=== PATIENT | male | born 1975 | race American Indian/Alaskan Native ===

== ENCOUNTER 2016-02-20 09:15 | Inpatient (IN) | payer OTHER ==
--- NOTE | 2016-02-20 09:50 | Emergency Department Report ---
Chief Complaint: Chest Pain Stated Complaint: CHEST PAIN Time Seen by Provider: 02/20/16 09:49 - HPI History of Present Illness: Patient here reports chest pain with coughing 2 weeks. Pain is located to his left chest area and 7 out of 10. Reports nausea and difficulty breathing. She denies history of HIV he states can stribild. He said he missed 2 days of his medication. She was seeing Dr. daugherty as his infectious disease doctor. He said his viral load was undetectable at 4 months ago. Patient is febrile at 102.4 and tachycardic. - ROS Review of Systems: All Systems are negative unless stated in HPI above. - Exam Vital Signs: Vital Signs 02/20/16 09:35 Temperature 102.4 F H Pulse Rate 135 H Respiratory 18 Rate Blood Pressure 120/81 O2 Sat by Pulse 96 Oximetry Physical Exam: General: This is a 40-year-old male that looks ill Lungs: Patient with congestive cough and lung sounds are coarse rhonchi. Mild increased work of breathing. Patient is short of breath with exertion. CV: Tachycardic at 135. MSE screening note: Focused history and physical exam performed. Due to findings the following was ordered:see mdm ED Medical Decision Making - Medical Decision Making Medical decision making: Patient seen by provider in triage area. Appropriate protocol activated and patient to main ED to be seen by physician. ED Disposition for MSE Condition: Stable
[2016-02-20] MEDS ORDERED: NACL 0.9% 1000 ML 1,000 ML IV ONE ×2 (09:51→11:36)
[2016-02-20] MEDS ORDERED: TYLENOL PO STA (09:51)
[2016-02-20] MEDS ORDERED: ATROVENT IH ONE (09:55)
[2016-02-20] MEDS ORDERED: XOPENEX IH ONE (09:55)
[2016-02-20 10:24] LABS: Basophils % (Auto) 0.4 % (0.0-1.8); Hematocrit 40.2 % (35.5-45.6); Hemoglobin 13.2 gm/dl (11.8-15.2); Mean Corpuscular HGB Conc 33 % (32-34); Mean Corpuscular Hemoglobin 31 pg (28-32); Mean Corpuscular Volume 94 fl (84-94); Platelet Count 487 K/mm3 (140-440); Red Blood Count 4.29 M/mm3 (3.65-5.03); Red Cell Distribution Width 13.6 % (13.2-15.2); White Blood Count 16.6 K/mm3 (4.5-11.0)
[2016-02-20 10:38] LABS: Alanine Aminotransferase 53 units/L (7-56); Albumin 3.6 g/dL (3.9-5); Albumin/Globulin Ratio 0.7 %; Alkaline Phosphatase 78 units/L (35-129); Anion Gap 21 mmol/L; BUN/Creatinine Ratio 16.36; Bilirubin,Total 0.5 mg/dL (0.1-1.2); Blood Urea Nitrogen 18 mg/dL (9-20); Calcium 9.7 mg/dL (8.4-10.2); Carbon Dioxide 26 mmol/L (22-30); Chloride 90.1 mmol/L (98-107); Glucose 130 mg/dL (75-100); Potassium 4.7 mmol/L (3.6-5.0); Sodium 132 mmol/L (137-145); Total Protein 9.1 g/dL (6.3-8.2)
[2016-02-20 10:43] LABS: INR 1.33 (0.87-1.13)
--- NOTE | 2016-02-20 10:47 | XRay Report ---
ROUTINE CHEST, TWO VIEWS: HISTORY: Cough, fever. The trachea, heart, mediastinal contour, lung sams and bony thorax are unremarkable. No significant change since 10/09/15. IMPRESSION: Unremarkable chest x-ray.
[2016-02-20 11:04] LABS: Bilirubin,Urine NEG (Negative); Blood,Urine SM (Negative); Ketones,Urine NEG (Negative); Leukocyte Esterase,Urine NEG (Negative); Mucus,Urine 1+ /HPF; Nitrite,Urine NEG (Negative); Urobilinogen,Urine < 2.0 mg/dL (<2.0)
[2016-02-20 11:38] LABS: Creatine Kinase 41 units/L (55-170)
--- NOTE | 2016-02-20 11:43 | Emergency Department Report ---
HPI - General Chief Complaint: Chest Pain Time Seen by Provider: 02/20/16 09:54 - HPI HPI: Chief complaint: Cough, chest pain, wheezing, fever HPI: Patient is a 40-year-old male states he's been HIV positive since 2011 but denies HIV related infections. Patient is taking antiretrovirals and states his viral load was nondetectable on his most recent visit to his infectious disease doctor. Patient states he has not taken his medications in the last 2 days. Patient states he injured his shoulder approximately a month ago pushing sheet rock at work and one week ago he began having swelling in his sternoclavicular joint on the right and tenderness. Patient states it hurts when he breathes there and when he swallows. Patient also complains of headache and slight lightheadedness. Patient states today he has sharp left pectoralis muscle pain. Patient states his fever started this morning. Patient states he has a nonproductive cough and denies any abdominal pain or dysuria. Mode of arrival: [EMS] Source: [Patient] and nursing notes Began: See above Duration: See above Context: See above Quality: See above Severity: 7 out of 10 Improved with: See above Worsened with: Nothing Associated signs and symptoms: See above ED Past Medical Hx - Past Medical History Previous Medical History?: Yes Hx HIV: Yes Additional medical history: recent foot infection - Surgical History Past Surgical History?: Yes Additional Surgical History: hernia repair - Social History Smoking Status: Former Smoker Substance Use Type: Prescribed - Medications Home Medications: Home Medications Medication Instructions Recorded Confirmed Last Taken Type Ciprofloxacin [Ciprofloxacin ORAL 500 mg PO Q12H #20 ml 10/12/15 Unknown Rx LIQ] HYDROcodone/APAP 10-325 [Kimball 1 each PO Q8HR PRN #10 tablet 02/04/16 Unknown Rx 10/325] Ibuprofen [Motrin 800 MG tab] 800 mg PO Q8HR PRN #21 tablet 02/04/16 Unknown Rx predniSONE [Deltasone] 40 mg PO QDAY #10 tab 02/04/16 Unknown Rx ED Review of Systems ROS: Stated complaint: CHEST PAIN Other details as noted in HPI ROS Constitutional: fever ENT: See HPI Cardiovascular: See HPI Respiratory: See HPI GI: No nausea vomiting or diarrhea : No dysuria frequency or urgency, Skin: No rash Neuro: No focal weakness or numbness Psych: No depression Ramiro/lymph: No edema Physical Exam - Physical Exam Vital Signs: Vital Signs 02/20/16 02/20/16 02/20/16 09:35 10:51 10:53 Temperature 102.4 F H Pulse Rate 135 H 110 H Pulse Rate [ Anterior Bilateral Throughout] Respiratory 18 25 H Rate Respiratory Rate [Anterior Bilateral Throughout] Blood Pressure 120/81 O2 Sat by Pulse 96 97 97 Oximetry 02/20/16 02/20/16 02/20/16 10:54 10:55 10:58 Temperature Pulse Rate 113 H 113 H Pulse Rate [ 105 H Anterior Bilateral Throughout] Respiratory 18 15 Rate Respiratory 20 Rate [Anterior Bilateral Throughout] Blood Pressure 117/67 117/67 O2 Sat by Pulse 93 97 Oximetry 02/20/16 02/20/16 02/20/16 11:01 11:02 11:31 Temperature 98.8 F Pulse Rate Pulse Rate [ 117 H Anterior Bilateral Throughout] Respiratory 15 Rate Respiratory 18 Rate [Anterior Bilateral Throughout] Blood Pressure O2 Sat by Pulse 97 Oximetry Physical Exam: GENERAL: The patient is well-developed well-nourished . Vital signs noted HEENT: Normocephalic. Atraumatic. Extraocular motions are intact. Patient has moist mucous membranes. NECK: Supple. No meningitic signs are noted. There is no adenopathy noted. CHEST/LUNGS: Clear to auscultation. Patient had just finished nebulizer treatment. There is no respiratory distress noted. Right sternoclavicular joint tender and swollen, no fluctuance slight erythema. HEART/CARDIOVASCULAR: Regular. There is tachycardia. There is no gallop rub or murmur. ABDOMEN: Abdomen is soft, nontender. Patient has normal bowel sounds. There is no abdominal distention. SKIN: There is no rash. There is no edema. There is no diaphoresis. NEURO: The patient is awake, alert, and oriented. The patient is cooperative. The patient has no focal neurologic deficits. The patient has normal speech. MUSCULOSKELETAL: There is no tenderness or deformity. There is no limitation range of motion. There is no evidence of acute injury. ED Course Vital Signs 02/20/16 02/20/16 02/20/16 09:35 10:51 10:53 Temperature 102.4 F H Pulse Rate 135 H 110 H Pulse Rate [ Anterior Bilateral Throughout] Respiratory 18 25 H Rate Respiratory Rate [Anterior Bilateral Throughout] Blood Pressure 120/81 O2 Sat by Pulse 96 97 97 Oximetry 02/20/16 02/20/16 02/20/16 10:54 10:55 10:58 Temperature Pulse Rate 113 H 113 H Pulse Rate [ 105 H Anterior Bilateral Throughout] Respiratory 18 15 Rate Respiratory 20 Rate [Anterior Bilateral Throughout] Blood Pressure 117/67 117/67 O2 Sat by Pulse 93 97 Oximetry 02/20/16 02/20/16 02/20/16 11:01 11:02 11:31 Temperature 98.8 F Pulse Rate Pulse Rate [ 117 H Anterior Bilateral Throughout] Respiratory 15 Rate Respiratory 18 Rate [Anterior Bilateral Throughout] Blood Pressure O2 Sat by Pulse 97 Oximetry - Reevaluation(s) Reevaluation #1: 02/20/16 11:45 Patient given Tylenol with improvement of his fever. Patient given normal saline and a nebulizer treatment. Reevaluation #2: 02/20/16 13:[address] scan showed osteomyelitis sepsis to the right sternoclavicular joint. Patient was given vancomycin and Zosyn. When questioned about his penicillin allergy patient states when he took Augmentin he got diarrhea. There is no rash or anaphylaxis. Dr. Malik was consulted and will see the patient in the hospital. ED Medical Decision Making - Lab Data Result diagrams: 02/20/16 10:03 02/20/16 10:03 Laboratory Tests 02/20/16 02/20/16 10:03 10:03 PT 16.4 H INR 1.33 H VBG pH 7.405 - EKG Data -: EKG Interpreted by Me EKG shows normal: sinus rhythm Rate: tachycardia (125) - EKG Data When compared to previous EKG there are: no significant change (except for tachycardia) - Radiology Data Radiology results: report reviewed (chest x-ray within normal limits. CT of the chest showed osteomyelitis of the right sternoclavicular joint.) Critical care attestation.: If time is entered above; I have spent that time in minutes in the direct care of this critically ill patient, excluding procedure time. ED Disposition Clinical Impression: HIV (human immunodeficiency virus infection) Osteomyelitis Qualifiers: Laterality: right Chronicity: acute Disposition: OP ADMITTED IP TO THIS HOSP Is pt being admited?: Yes Does the pt Need Aspirin: Yes Condition: Fair Time of Disposition: 13:46 (admit to the hospitalist)
[2016-02-20 11:44] LABS: Creatine Kinase MB < 1.0 ng/mL (0.0-4.0)
[2016-02-20] MEDS ORDERED: NACL 0.9% 1000 ML IV ONE (12:22)
[2016-02-20] MEDS ORDERED: NACL ONE (12:23)
--- NOTE | 2016-02-20 12:52 | Cat Scan Report ---
CT CHEST WITH CONTRAST: HISTORY: Chest pain, right sternoclavicular swelling, fever. TECHNIQUE: Helical CT following IV contrast. Sagittal and coronal reformatted images. FINDINGS: There is bony destruction on both sides of the right sternoclavicular joint and surrounding soft tissue swelling. There is no obvious peripheral enhancing abscess or subcutaneous gas. Heart size is normal. There is no evidence of adenopathy within the mediastinum. Pulmonary robert are free of any mass and the lungs are clear of infiltrates. The pleura is unremarkable. No masses involve the chest wall. No abnormalities are noted within the upper abdomen. The adrenal glands are normal. IMPRESSION: Osteomyelitis/septic arthritis of the right sternoclavicular joint.
[2016-02-20] MEDS ORDERED: VANCOMYCIN/NS 1 GM/250 ML 250 ML IV ONE (13:36)
[2016-02-20] MEDS ORDERED: ZOSYN/NS 4.5GM/100ML 100 ML IV ONE (13:39)
[2016-02-20] MEDS ORDERED: ASPIRIN PO ONE (13:47)
[2016-02-20] MEDS: ZOSYN/NS 4.5GM/100ML 100 ML IV ONE ×2 (14:45→14:59)
[2016-02-20 15:08] LABS: Alanine Aminotransferase 43 units/L (7-56); Albumin 2.9 g/dL (3.9-5); Albumin/Globulin Ratio 0.5 %; Alkaline Phosphatase 70 units/L (35-129); Bilirubin,Total 0.5 mg/dL (0.1-1.2); Blood Urea Nitrogen 16 mg/dL (9-20); Calcium 9.1 mg/dL (8.4-10.2); Carbon Dioxide 24 mmol/L (22-30); Chloride 94.1 mmol/L (98-107); Glucose 103 mg/dL (75-100); Potassium 4.3 mmol/L (3.6-5.0); Sodium 133 mmol/L (137-145); Total Protein 8.4 g/dL (6.3-8.2)
[2016-02-20 15:09] LABS: Anion Gap 19 mmol/L
[2016-02-20] MEDS ORDERED: TYLENOL ONE (15:18)
[2016-02-20] MEDS: TYLENOL PO PRN ×2 (15:20→23:09)
[2016-02-20] MEDS: LOVENOX SUB-Q SCH (15:34)
[2016-02-20] MEDS: MORPHINE IV PRN ×2 (16:22→20:12)
--- NOTE | 2016-02-20 18:42 | Consultation ---
History of Present Illness - Reason for Consult Consult date: 02/20/16 Right SC joint septic arthritis; + HIV Requesting physician: MAVIS MCCORMICK - History of Present Illness Darren Shipley is a 40-year-old male with HIV infection who is well known to our practice as he is followed by Dr. Morley in our office who was admitted to [facility] on 02/20/16 with fever and chest pain and a CT of the chest showing right SC joint osteomyelitis and septic arthritis. He started having pain in the right SC joint area towards the end of January and was seen in the emergency department at [facility] on 02/03/16 and was treated for musculoskeletal pain which he attributed to" lifting sheet rock at work." He subsequently was seen at a urgent care center and again given pain medicine for the chest pain. With the last week to 10 days he has noted swelling in the area and has started having fever and chills. He has also had mild upper respiratory tract symptoms with nasal congestion and a mild cough which she has tried to minimize because it "hurts his chest so much." Otherwise he has not had any known injury to the chest area. He has no history of IV drug abuse. He was hospitalized at [facility] in 09/2015 with diarrhea that turned out to be secondary to Shigella which responded well to antibiotics and he has not had any recurrent diarrhea since. He has been each IV positive since 2011 and has been maintained on Stribild which he states he has been compliant in taking and has only missed "an occasional dose." He has not had any HIV related infections or problems to his knowledge. Review of systems General: See HPI HEENT: no odynophagia, no dysphagia, no oral lesions, no vision changes. Mild nasal congestion as per HPI. CV: no exertional chest pain, no palpitations Chest: no dyspnea, mild cough as per HPI GI: no abdominal pain, no N/V, no diarrhea : no change in urinary frequency, no dysuria, no hematuria Skin: no rashes; Ext: See HPI Neuro: no headaches, no numbness/tingling, no tremors Endocrine: No history of diabetes. Psych: no anxiety, no depression Infectious diseases: + HIV. No significant travel or animal contact history. Medications and Allergies Allergies Allergy/AdvReac Type Severity Reaction Status Date / Time amoxicillin trihydrate AdvReac Unknown Verified 02/03/16 17:24 [From Augmentin] potassium clavulanate AdvReac Unknown Verified 02/03/16 17:24 [From Augmentin] Home Medications Medication Instructions Recorded Confirmed Last Taken Type Ibuprofen [Motrin 800 MG tab] 800 mg PO Q8HR PRN #21 tablet 02/04/16 02/20/16 Rx Elvitegr/Cobicist/Emtric/Tenof 1 each PO DAILY 02/20/16 02/20/16 Unknown History [Stribild Tablet] Active Meds: Active Medications Acetaminophen (Tylenol) 500 mg PO Q6H PRN PRN Reason: Pain, Mild (1-3) Last Admin: 02/20/16 15:20 Dose: 500 mg Enoxaparin Sodium (Lovenox) 40 mg SUB-Q QDAY [facility] Last Admin: 02/20/16 15:34 Dose: 40 mg Miscellaneous Medication (Elvitegr/Cobicist/Emtric/Tenof [Stribild Tablet]) 1 each PO DAILY JOHANA Morphine Sulfate (Morphine) 4 mg IV Q4H PRN PRN Reason: Pain , Severe (7-10) Last Admin: 02/20/16 16:22 Dose: 4 mg Physical Examination - Physical Exam Narrative exam: GENERAL: Well-developed, well-nourished appearing male who is alert and in no acute distress. He appears only mildly ill. HEAD: Normocephalic. No lesions seen. EYES: Pupils are equal reactive to light and accommodation. There is no scleral icterus. Optic fundi are not examined. EARS: Tympanic membranes are normal. THROAT: Oropharynx is normal with no evidence of oral candidiasis or pharyngitis. NECK: Supple. No enlargement of the thyroid gland. No significant cervical lymphadenopathy. No jugular venous distention at 30. LUNGS: Clear with no adventitious sounds. CHEST: There is exquisite tenderness over the right SC joint with marked swelling in the area but no definite fluctuance or crepitus. HEART: Regular rate. S1 and S2 are normal. There are no murmurs, gallops, clicks or rubs heard. ABDOMEN: Soft and nontender. Liver and spleen are not palpably enlarged or tender. No palpable masses. Bowel sounds are normoactive. EXTREMITIES: No rash, peripheral lymphadenopathy, clubbing or edema. : Not examined NEUROLOGIC: No focal findings. - Constitutional Vitals: Vital Signs Temp Pulse Resp BP Pulse Ox 98.9 F 107 H 22 128/82 99 02/20/16 15:17 02/20/16 17:00 02/20/16 17:00 02/20/16 17:00 02/20/16 17:00 Temperature -Last 24 Hours Temperature 98.9 F Selected Entries 02/20/16 09:35 Temperature 102.4 F H Results - Labs CBC & Chem 7: 02/20/16 10:03 02/20/16 14:36 Labs: Abnormal lab results Microbiology 02/20/16 10:30 Peripheral/Venous Blood Culture - Preliminary Culture in Progress 02/20/16 10:03 Peripheral/Venous Blood Culture - Preliminary Culture in Progress 02/20/16 11:35 Nasal Wash Influenza Types A,B Antigen (CRISTIAN) - negative 02/20/16 11:35 Throat Group A Streptococcus Rapid Screen - negative Imagin/8: CXR: No acute findings CT Chest: Changes consistent with right sternoclavicular joint septic arthritis and osteomyelitis 02/02: Right clavicle x-rays normal Assessment and Plan Current antibiotics: None Previous antibiotics: Zosyn 4.5 g IV X 1 02/19 Vancomycin and gram IV X 1 02/19 Antiretrovirals: Stribild 1 tab po q day ASSESSMENT: Darren Shipley is a 40-year-old male with HIV infection who is well known to our practice as he is followed by Dr. Morley in our office who was admitted to [facility] on 02/20/16 with fever and chest pain and a CT of the chest showing right SC joint osteomyelitis and septic arthritis. Problem list: 1. Right sternoclavicular joint septic arthritis and osteomyelitis -Etiology unclear -Seems unlikely that this would be secondary to Shigella at this point 2. Fever -Up to 102.4 earlier today -Secondary to #1 3. HIV infection -Well-controlled on ARVs (Stribild) 4. Leukocytosis -Secondary to #1 PLAN: 1. Blood cultures as have been done 2. Will continue IV Zosyn and vancomycin pending further culture data 3. Thoracic surgery consult for debridement and deep cultures 4. Continue Stribild 5. Supportive measures with pain control Thank you for this consultation. We will follow with you. Rigoberto Malik MD [facility] Office: [phone]
[2016-02-20] MEDS ORDERED: VANCOMYCIN VIAL IV SCH (22:00)
--- NOTE | 2016-02-20 23:19 | History and Physical Report ---
History of Present Illness Date of examination: 02/20/16 Date of admission: 02/20/16 14:18 Chief complaint: Pain in the right shoulder sternoclavicular joint area for 3 weeks, fever History of present illness: Patient is a 40-year-old gentleman who is HIV positive and has been following up with infectious diseases specialist Dr. daugherty, compliant with his medication with nondetectable virus presented emergency department with pain in the right sternoclavicular joint area as well as right shoulder. Pain has been persistent for the past 3 weeks. He initially attributed it to have a mole with some sheet rock at this work. Started having fever for which she came to the emergency department. The patient was 102. Pain was 10/10 in severity. Aggravated by coughing moving his right arm. Radiating to the back. No relieving factors. CT scan emergency departments was remarkable for some arthritis of sternoclavicular joint. Is from contacted infectious diseases specialist Dr. Malik was advised admission to contact and vancomycin and Zosyn. He is comfortable with the patient. Recommended cardiothoracic surgeon to be consulted for biopsy. Of note is that patient had recent history of diarrhea from Shigella. Was appropriately treated by infectious diseases specialist. Patient denies any chest pain. No abdominal pain. No nausea no vomiting. Past History Past Medical History: hepatitis (HIV positive), other Past Surgical History: Other (Judson 2001.) Social history: denies: smoking, alcohol abuse, prescription drug abuse Family history: no significant family history Medications and Allergies Allergies Allergy/AdvReac Type Severity Reaction Status Date / Time amoxicillin trihydrate AdvReac Unknown Verified 02/03/16 17:24 [From Augmentin] potassium clavulanate AdvReac Unknown Verified 02/03/16 17:24 [From Augmentin] Home Medications Medication Instructions Recorded Confirmed Last Taken Type Ibuprofen [Motrin 800 MG tab] 800 mg PO Q8HR PRN #21 tablet 02/04/16 02/20/16 Rx Elvitegr/Cobicist/Emtric/Tenof 1 each PO DAILY 02/20/16 02/20/16 Unknown History [Stribild Tablet] Active Meds: Active Medications Acetaminophen (Tylenol) 500 mg PO Q6H PRN PRN Reason: Pain, Mild (1-3) Last Admin: 02/20/16 23:09 Dose: 500 mg Enoxaparin Sodium (Lovenox) 40 mg SUB-Q QDAY [facility] Last Admin: 02/20/16 15:34 Dose: 40 mg Vancomycin HCl 2,000 mg/ (Sodium Chloride) 500 mls @ 250 mls/hr IV Q12H [facility] Miscellaneous Medication (Elvitegr/Cobicist/Emtric/Tenof [Stribild Tablet]) 1 each PO DAILY [facility] Morphine Sulfate (Morphine) 4 mg IV Q4H PRN PRN Reason: Pain , Severe (7-10) Last Admin: 02/20/16 20:12 Dose: 4 mg Review of Systems Constitutional: fever, chills, no weight loss, no weight gain Ears, nose, mouth and throat: no ear pain, no ear discharge, no tinnitis Cardiovascular: palpitations, no chest pain, no orthopnea Respiratory: no cough, no cough with sputum, no excessive sputum Gastrointestinal: no nausea, no vomiting, no diarrhea, no BRBPR Genitourinary Male: no dysuria, no hematuria Exam - Constitutional Vitals: Temp Pulse Resp BP Pulse Ox 99.1 F 103 H 20 132/78 100 02/20/16 20:00 02/20/16 20:00 02/20/16 23:09 02/20/16 20:00 02/20/16 20:00 General appearance: Present: no acute distress, mild distress - EENT Eyes: Present: PERRL - Respiratory Respiratory: bilateral: CTA - Cardiovascular Rhythm: regular Heart Sounds: Present: S1 & S2 - Extremities Extremities: no ischemia, pulses intact - Abdominal General gastrointestinal: Present: soft, non-tender Male genitourinary: Present: normal - Rectal Rectal Exam: normal exam-external/orifice - Integumentary Integumentary: Present: clear, warm, dry, erythema Results - Labs CBC & Chem 7: 02/20/16 10:03 02/20/16 14:36 Labs: Abnormal lab results 02/20/16 Range/Units 14:36 Sodium 133 L (137-145) mmol/L Chloride 94.1 L (98-107) mmol/L Glucose 103 H (75-100) mg/dL Total Protein 8.4 H (6.3-8.2) g/dL Albumin 2.9 L (3.9-5) g/dL Assessment and Plan - Patient Problems (1) Osteomyelitis Diagnosis Date: 02/20/16 Current Visit: Yes Status: Acute Qualifiers: Laterality: right Chronicity: acute Plan to address problem: 1. Osteomyelitis of the right sternoclavicular joint. Blood cultures have been obtained. ID consult obtained. Continue with IV vancomycin and IV Zosyn. 2. Cardiothoracic consult recommended by infectious diseases for biopsy of the affected joints. 3. DVT prophylaxis with Lovenox and GI prophylaxis with Pepcid. Spent 31 minutes in direct patient care evaluation radiological and laboratory data during this admission (2) HIV (human immunodeficiency virus infection) Diagnosis Date: 02/20/16 Current Visit: Yes Status: Acute (3) Leukocytosis Diagnosis Date: 02/20/16 Current Visit: Yes Status: Acute Plan to address problem: Secondary to osteomyelitis of the right sternoclavicular joint. Continue with IV Zosyn and vancomycin. Follow-up blood culture reports.
[2016-02-20] MEDS: VANCOMYCIN VIAL 2,000 MG in NACL 0.9% 500 ML 500 ML IV SCH (23:21)
[2016-02-21] MEDS: MORPHINE IV PRN ×5 (00:55→21:08)
--- NOTE | 2016-02-21 01:41 | Admit Criteria Form ---
Admission Criteria Documentation: OSTEOMYELITIS Clinical Indications for Admission to Inpatient Care (Place 'X' for any and all applicable criteria) Admission is indicated by ANY ONE of the following (1)(2)(3)(4)(5)(6): [ ] I. Significant systemic illness indicated by 2 or more of the following: [ ]a) Core (eg rectal) temperature greater or equal [id number](37.8C) in an adult [ ]b) Oral temperature[A] greater than or equal to 99.3 degrees F ( 37.4 degrees C) in an adult [ ]c) Heart rate greater than 90 beats per minute [ ]d) Respiratory rate greater than 20 breaths per minute or PaCO2 less than 32 mm Hg (4.3 kPa) [ ]e) White blood cell count > 12,000/mm3 (12 x109/L) or < 4000/mm3 ( 4 x109/L) or > 10% band cells [ ] II. Hemodynamic instability [ ] III. Severe pain requiring acute inpatient management [ ] IV. Bacteremia [ ] V. Mental status change (new) [ ] . Limb-threatening infection [ ] VII. Suspected necrotizing soft tissue infection (e.g., gas in tissue) [ ] VIII.Surgical intervention required (e.g., bone or soft tissue debridement, removal of foreign body, or revascularization procedure) not performable in outpatient or emergency department level of care(7) [ ] IX. Appropriate monitoring and therapy (IV antibiotics) cannot be immediately arranged for home or outpatient setting [ ] XI. Outpatient treatment failure (e.g., resistant organism identified, adverse medication effect, progression or lack of sufficient improvement of infection) [X ] XII. High-risk comorbid condition present including ANY ONE of the following: [ ]a) Poorly controlled diabetes (e.g., HbA1c greater than 10% (0.1)) [ ]b) Vascular insufficiency to affected area [ ]c) Cirrhosis [ ]d) Neutropenia [ ]e) Asplenia [ X]f) Immunosuppression (e.g., chronic systemic corticosteroid use) [ ]g) Symptomatic heart failure [ ] XIII.Joint involvement (e.g., septic arthritis) suspected [ ] XIV. Vertebral osteomyelitis [ ] XV. Skull-base osteomyelitis (e.g.,"malignant external otitis")[A](8)(9)(10 ) Extended stay beyond goal length of stay may be needed for(1)(3)(4)(5)(24)(25): [ ]a) Inadequate clinical response to antibiotics (e.g., continued fever, hypotension) [ ]b) Bacteremia [ ]c) Surgical intervention needed (e.g., beyond superficial debridement)(26) [ ]d) Vertebral osteomyelitis with spinal cord compression, abscess formation, or mechanical instability [ ]e) Antibiotic-resistant organism identified (e.g., methicillin-resistant Staphylococcal aureus) [ ]f) Deep venous thrombosis [ ]g) Unstable comorbidities (e.g., heart failure, renal insufficiency, immunosuppressed state)(28) The original [facility] [employer] content created by [employer] has been revised. The portions of the content which have been revised are identified through the use of italic text or in bold, and [facility] has neither reviewed nor approved the modified material. All other unmodified content is copyright [facility] [employer] 2016. Admission Criteria Met: Yes
[2016-02-21] MEDS: TYLENOL PO PRN ×2 (08:59→16:53)
--- NOTE | 2016-02-21 09:13 | Progress Note ---
Assessment and Plan Current antibiotics: None Previous antibiotics: Zosyn 4.5 g IV X 1 02/19 Vancomycin and gram IV X 1 02/19 Antiretrovirals: Stribild 1 tab po q day ASSESSMENT: Darren Shipley is a 40-year-old male with HIV infection who is well known to our practice as he is followed by Dr. Morley in our office who was admitted to [facility] on 02/20/16 with fever and chest pain and a CT of the chest showing right SC joint osteomyelitis and septic arthritis. Problem list: 1. Right sternoclavicular joint septic arthritis and osteomyelitis -Etiology unclear -Seems unlikely that this would be secondary to Shigella at this point 2. Fever -Secondary to #1 3. HIV infection -Well-controlled on ARVs (Stribild) 4. Leukocytosis -Secondary to #1 PLAN: 1. Blood cultures as have been done and are pending 2. Will continue IV Zosyn and vancomycin pending further culture data 3. Thoracic surgery consult for debridement and deep cultures pending 4. Continue Stribild 5. Supportive measures with pain control Subjective Date of service: 02/21/16 Interval history: Patient with marked Right SC joint site pain. " Hurts to move my right arm". Objective - Exam Narrative Exam: - Physical Exam Narrative exam: GENERAL: Well-developed, well-nourished appearing male who is alert and in no acute distress. He appears only mildly ill. HEAD: Normocephalic. No lesions seen. EYES: Pupils are equal reactive to light and accommodation. There is no scleral icterus. Optic fundi are not examined. EARS: Tympanic membranes are normal. THROAT: Oropharynx is normal with no evidence of oral candidiasis or pharyngitis. NECK: Supple. No enlargement of the thyroid gland. No significant cervical lymphadenopathy. No jugular venous distention at 30. LUNGS: Clear with no adventitious sounds. CHEST: There is exquisite tenderness over the right SC joint with marked swelling in the area but no definite fluctuance or crepitus. HEART: Regular rate. S1 and S2 are normal. There are no murmurs, gallops, clicks or rubs heard. ABDOMEN: Soft and nontender. Liver and spleen are not palpably enlarged or tender. No palpable masses. Bowel sounds are normoactive. EXTREMITIES: No rash, peripheral lymphadenopathy, clubbing or edema. Able to move right arm- but painful on attempt. : Not examined NEUROLOGIC: No focal findings. - Constitutional Vitals: Vital Signs Temp Pulse Resp BP Pulse Ox 101.7 F H 107 H 18 136/69 96 02/21/16 08:32 02/21/16 08:32 02/21/16 08:32 02/21/16 08:32 02/21/16 08:32 Temperature -Last 24 Hours Temperature 101.7 F Temperature 98 F Temperature 98.4 F Temperature 99.1 F Temperature 98.9 F - Labs CBC & Chem 7: 02/20/16 10:03 02/20/16 14:36 Labs: Abnormal lab results 02/20/16 Range/Units 14:36 Sodium 133 L (137-145) mmol/L Chloride 94.1 L (98-107) mmol/L Glucose 103 H (75-100) mg/dL Total Protein 8.4 H (6.3-8.2) g/dL Albumin 2.9 L (3.9-5) g/dL
[2016-02-21] MEDS: VANCOMYCIN VIAL 2,000 MG in NACL 0.9% 500 ML 500 ML IV SCH ×2 (09:39→21:09)
[2016-02-21] MEDS: LOVENOX SUB-Q SCH (09:39)
--- NOTE | 2016-02-21 11:05 | Consultation ---
History of Present Illness Consult date: 02/21/16 Reason for consult: other (right sternoclavicular osteomyolitis) Chief complaint: right right upper shoulder hurts - History of present illness History of present illness: This is a 40 year old male who is HIV positive who has a several week hx of progressive right shoulder , right anterior chest wall pain who presented to the ER where a CT of the chest reveals right sternoclavicular osteomyolitis/ joint infection, he was admitted for further therapy. Past History Past Medical History: hepatitis (HIV positive), other Past Surgical History: Other (Judson 2001.) Social history: denies: smoking, alcohol abuse, prescription drug abuse Family history: no significant family history Medications and Allergies Allergies Allergy/AdvReac Type Severity Reaction Status Date / Time amoxicillin trihydrate AdvReac Unknown Verified 02/03/16 17:24 [From Augmentin] potassium clavulanate AdvReac Unknown Verified 02/03/16 17:24 [From Augmentin] Home Medications Medication Instructions Recorded Confirmed Last Taken Type Ibuprofen [Motrin 800 MG tab] 800 mg PO Q8HR PRN #21 tablet 02/04/16 02/20/16 Rx Elvitegr/Cobicist/Emtric/Tenof 1 each PO DAILY 02/20/16 02/20/16 Unknown History [Stribild Tablet] Active Meds: Active Medications Acetaminophen (Tylenol) 500 mg PO Q6H PRN PRN Reason: Pain, Mild (1-3) Last Admin: 02/21/16 08:59 Dose: 500 mg Enoxaparin Sodium (Lovenox) 40 mg SUB-Q QDAY [facility] Last Admin: 02/21/16 09:39 Dose: 40 mg Vancomycin HCl 2,000 mg/ (Sodium Chloride) 500 mls @ 250 mls/hr IV Q12H [facility] Last Admin: 02/21/16 09:39 Dose: 250 mls/hr Influenza Virus Vaccine Quadrival (Fluarix Quad [id number](36 Mos+)) 60 mcg IM .ONCE ONE Stop: 02/21/16 12:01 Miscellaneous Medication (Elvitegr/Cobicist/Emtric/Tenof [Stribild Tablet]) 1 each PO DAILY [facility] Morphine Sulfate (Morphine) 4 mg IV Q4H PRN PRN Reason: Pain , Severe (7-10) Last Admin: 02/21/16 06:40 Dose: 4 mg Review of Systems - Respiratory other (right anterior chest wall and shoulder pain) Exam Vital Signs Temp Pulse Resp BP Pulse Ox 102.4 F H 135 H 18 120/81 96 02/20/16 09:35 02/20/16 09:35 02/20/16 09:35 02/20/16 09:35 02/20/16 09:35 - General physical appearance Positive: no distress - Eyes Positive: PERRL, normal occular movement - ENT Positive: normal pinna, normal nares, normal mucosa, no hearing loss, no congestion - Neck Positive: no masses, no bruits, trachea midline, no venous distension - Respiratory Positive: normal expansion, normal respiratory effort, clear to auscultation, other (swollen and tender over right SC joint.) - Cardiovascular Rhythm: other (sinus tach) Heart Sounds: Present: S1 & S2. Absent: rub, click - Extremities Extremities: no ischemia, pulses symmetrical, No edema, abnormal (will not move right arm because of pain in right SC joint) Peripheral Pulses: within normal limits - Breasts Breasts: normal - Abdomen Abdomen: Present: soft, bowel sounds normal. Absent: tender, distended Hernia: none - Neurologic Neurologic: alert and oriented to time, place and person, motor strength and sensation are grossly intact - Musculoskeletal normal gait, normal posture - Psychiatric Psychiatric: appropriate mood/affect, intact judgment & insight Results - Labs 02/20/16 10:03 02/20/16 14:36 Abnormal lab results 02/20/16 Range/Units 14:36 Sodium 133 L (137-145) mmol/L Chloride 94.1 L (98-107) mmol/L Glucose 103 H (75-100) mg/dL Total Protein 8.4 H (6.3-8.2) g/dL Albumin 2.9 L (3.9-5) g/dL Diabetes panel 02/20/16 Range/Units 14:36 Sodium 133 L (137-145) mmol/L Potassium 4.3 (3.6-5.0) mmol/L Chloride 94.1 L (98-107) mmol/L Carbon Dioxide 24 (22-30) mmol/L BUN 16 (9-20) mg/dL Creatinine 1.0 (0.8-1.5) mg/dL Glucose 103 H (75-100) mg/dL Calcium 9.1 (8.4-10.2) mg/dL AST 22 (5-40) units/L ALT 43 (7-56) units/L Alkaline Phosphatase 70 (35-129) units/L Total Protein 8.4 H (6.3-8.2) g/dL Albumin 2.9 L (3.9-5) g/dL Calcium panel 02/20/16 Range/Units 14:36 Calcium 9.1 (8.4-10.2) mg/dL Albumin 2.9 L (3.9-5) g/dL Pituitary panel 02/20/16 Range/Units 14:36 Sodium 133 L (137-145) mmol/L Potassium 4.3 (3.6-5.0) mmol/L Chloride 94.1 L (98-107) mmol/L Carbon Dioxide 24 (22-30) mmol/L BUN 16 (9-20) mg/dL Creatinine 1.0 (0.8-1.5) mg/dL Glucose 103 H (75-100) mg/dL Calcium 9.1 (8.4-10.2) mg/dL Adrenal panel 02/20/16 Range/Units 14:36 Sodium 133 L (137-145) mmol/L Potassium 4.3 (3.6-5.0) mmol/L Chloride 94.1 L (98-107) mmol/L Carbon Dioxide 24 (22-30) mmol/L BUN 16 (9-20) mg/dL Creatinine 1.0 (0.8-1.5) mg/dL Glucose 103 H (75-100) mg/dL Calcium 9.1 (8.4-10.2) mg/dL Total Bilirubin 0.5 (0.1-1.2) mg/dL AST 22 (5-40) units/L ALT 43 (7-56) units/L Alkaline Phosphatase 70 (35-129) units/L Total Protein 8.4 H (6.3-8.2) g/dL Albumin 2.9 L (3.9-5) g/dL Assessment and Plan Osteomyolitis right sternoclavicular joint Need I and D right sternoclavicular joint, joint debridement with cultures Antibiotics per INF DZ Will place on schedule.
[2016-02-21] MEDS ORDERED: FLUARIX QUAD 2016-2017(36 MOS+) IM ONE (12:00)
[2016-02-21 15:10] LABS: Alanine Aminotransferase 38 units/L (7-56); Albumin/Globulin Ratio 0.6 %; Alkaline Phosphatase 66 units/L (35-129); Anion Gap 18 mmol/L; Bilirubin,Total 0.4 mg/dL (0.1-1.2); Blood Urea Nitrogen 12 mg/dL (9-20); Calcium 9.1 mg/dL (8.4-10.2); Carbon Dioxide 27 mmol/L (22-30); Chloride 91.5 mmol/L (98-107); Glucose 124 mg/dL (75-100); Potassium 4.8 mmol/L (3.6-5.0); Sodium 132 mmol/L (137-145); Total Protein 8.2 g/dL (6.3-8.2)
--- NOTE | 2016-02-21 15:26 | Anesthesia Consultation ---
<BAR KIMBALL - Last Filed: 02/21/16 15:25> Anesthesia Consult and Med Hx Date of service: 02/21/16 - Airway Anesthetic Teeth Evaluation: Good (#8 chipped) ROM Head & Neck: Adequate Mental/Hyoid Distance: Adequate Mallampati Class: Class II Intubation Access Assessment: Probably Good - Pre-Operative Health Status ASA Pre-Surgery Classification: ASA2 Proposed Anesthetic Plan: General - Pulmonary Hx Smoking: Yes (former smoker) - Central Nervous System Hx Psychiatric Problems: No - Other Systems Hx Cancer: No - Additional Comments Anesthesia Medical History Comments: HIV <CHERRI OLSON - Last Filed: 02/22/16 07:12> Anesthesia Consult and Med Hx - Pre-Operative Health Status ASA Pre-Surgery Classification: ASA3
[2016-02-21 17:59] LABS: Basophils % (Auto) 0.6 % (0.0-1.8); Eosinophils % (Auto) 0.1 % (0.0-4.3); Hemoglobin 11.6 gm/dl (11.8-15.2); Mean Corpuscular HGB Conc 33 % (32-34); Mean Corpuscular Hemoglobin 31 pg (28-32); Mean Corpuscular Volume 93 fl (84-94); Platelet Count 364 K/mm3 (140-440); Red Blood Count 3.77 M/mm3 (3.65-5.03)
--- NOTE | 2016-02-21 19:27 | Progress Note ---
Assessment and Plan Assessment and plan: 1. Right sternoclavicular joint septic arthritis and osteomyelitis Blood cultures and throat culture obtained Evaluated by ID and started on broad-spectrum antibiotics, vancomycin and Zosyn Thoracic surgery consulted for debridement and deep cultures 2. Leukocytosis, fever Secondary to #1 3. HiV infection Continue ARV LESA recommendation 4. Intermittent elevated BP Most likely secondary to pain Monitor for now 5. DVT prophylaxis History Interval history: pain right anterior chest wall better controlled now Hospitalist Physical - Constitutional Vitals: Temp Pulse Resp BP Pulse Ox 102.9 F H 110 H 22 130/61 96 02/21/16 16:20 02/21/16 16:20 02/21/16 16:20 02/21/16 16:20 02/21/16 16:20 General appearance: Present: no acute distress, well-nourished - EENT Eyes: Present: PERRL, EOM intact. Absent: scleral icterus, conjunctival injection - Neck Neck: Present: supple. Absent: enlarged thyroid, masses or JVD - Respiratory Respiratory effort: normal Respiratory: bilateral: CTA, negative: rales, rhonchi, wheezing - Cardiovascular Rhythm: regular Heart Sounds: Present: S1 & S2. Absent: systolic murmur - Extremities Extremities: no ischemia - Abdominal General gastrointestinal: soft, non-tender, non-distended, normal bowel sounds - Psychiatric Psychiatric: cooperative - Neurologic Neurologic: CNII-XII intact, no focal deficits - Additional findings Additional findings: Tenderness right anterior chest wall Results - Labs CBC & Chem 7: 02/21/16 17:44 02/21/16 14:41 Labs: Laboratory Last Values WBC 15.0 K/mm3 (4.5-11.0) H 02/21/16 17:44 RBC 3.77 M/mm3 (3.65-5.03) 02/21/16 17:44 Hgb 11.6 gm/dl (11.8-15.2) L 02/21/16 17:44 Hct 35.0 % (35.5-45.6) L 02/21/16 17:44 MCV 93 fl (84-94) 02/21/16 17:44 MCH 31 pg (28-32) 02/21/16 17:44 MCHC 33 % (32-34) 02/21/16 17:44 RDW 13.0 % (13.2-15.2) L 02/21/16 17:44 Plt Count 364 K/mm3 (140-440) 02/21/16 17:44 Lymph % (Auto) 15.1 % (13.4-35.0) 02/21/16 17:44 [place] % (Auto) 10.3 % (0.0-7.3) H 02/21/16 17:44 Eos % (Auto) 0.1 % (0.0-4.3) 02/21/16 17:44 Baso % (Auto) 0.6 % (0.0-1.8) 02/21/16 17:44 Lymph # 2.3 K/mm3 (1.2-5.4) 02/21/16 17:44 [place] # 1.5 K/mm3 (0.0-0.8) H 02/21/16 17:44 Eos # 0.0 K/mm3 (0.0-0.4) 02/21/16 17:44 Baso # 0.1 K/mm3 (0.0-0.1) 02/21/16 17:44 Seg Neutrophils % 73.9 % (40.0-70.0) H 02/21/16 17:44 Seg Neutrophils # 11.1 K/mm3 (1.8-7.7) H 02/21/16 17:44 PT 16.4 Sec. (12.2-14.9) H 02/20/16 10:03 INR 1.33 (0.87-1.13) H 02/20/16 10:03 VBG pH 7.405 (7.320-7.420) 02/20/16 10:03 Sodium 132 mmol/L (137-145) L 02/21/16 14:41 Potassium 4.8 mmol/L (3.6-5.0) 02/21/16 14:41 Chloride 91.5 mmol/L (98-107) L 02/21/16 14:41 Carbon Dioxide 27 mmol/L (22-30) 02/21/16 14:41 Anion Gap 18 mmol/L 02/21/16 14:41 BUN 12 mg/dL (9-20) 02/21/16 14:41 Creatinine 0.8 mg/dL (0.8-1.5) 02/21/16 14:41 Estimated GFR > 60 ml/min 02/21/16 14:41 BUN/Creatinine Ratio 15.00 % 02/21/16 14:41 Glucose 124 mg/dL (75-100) H 02/21/16 14:41 POC Glucose 123 (70-105) H 02/21/16 16:24 Lactic Acid 2.4 mmol/L (0.7-2.0) H* 02/21/16 14:41 Calcium 9.1 mg/dL (8.4-10.2) 02/21/16 14:41 Magnesium 2.0 mg/dL (1.7-2.3) 02/20/16 10:20 Total Bilirubin 0.4 mg/dL (0.1-1.2) 02/21/16 14:41 AST 23 units/L (5-40) 02/21/16 14:41 ALT 38 units/L (7-56) 02/21/16 14:41 Alkaline Phosphatase 66 units/L (35-129) 02/21/16 14:41 Total Creatine Kinase 41 units/L (55-170) L 02/20/16 10:03 CK-MB (CK-2) < 1.0 ng/mL (0.0-4.0) 02/20/16 10:03 CK-MB (CK-2) Rel Index 2.4 (0-4) 02/20/16 10:03 Troponin T < 0.010 ng/mL (0.00-0.029) 02/20/16 10:03 Total Protein 8.2 g/dL (6.3-8.2) 02/21/16 14:41 Albumin 3.0 g/dL (3.9-5) L 02/21/16 14:41 Albumin/Globulin Ratio 0.6 % 02/21/16 14:41 Urine Color [place] (Yellow) 02/20/16 10:50 Urine Turbidity Clear (Clear) 02/20/16 10:50 Urine pH 5.0 (5.0-7.0) 02/20/16 10:50 Ur Specific [place] 1.028 (1.003-1.030) 02/20/16 10:50 Urine Protein 100 mg/dl mg/dL (Negative) 02/20/16 10:50 Urine Glucose (UA) Neg mg/dL (Negative) 02/20/16 10:50 Urine Ketones Neg mg/dL (Negative) 02/20/16 10:50 Urine Blood Sm (Negative) 02/20/16 10:50 Urine Nitrite Neg (Negative) 02/20/16 10:50 Urine Bilirubin Neg (Negative) 02/20/16 10:50 Urine Urobilinogen < 2.0 mg/dL (<2.0) 02/20/16 10:50 Ur Leukocyte Esterase Neg (Negative) 02/20/16 10:50 Urine WBC (Auto) 2.0 /HPF (0.0-6.0) 02/20/16 10:50 Urine RBC (Auto) 2.0 /HPF (0.0-6.0) 02/20/16 10:50 U Epithel Cells (Auto) 1.0 /HPF (0-13.0) 02/20/16 10:50 Urine Mucus 1+ /HPF 02/20/16 10:50 - Imaging and Cardiology Chest x-ray: image reviewed (no acute findings) CT scan - chest: report reviewed (right sternoclavicular joint septic arthritis and osteomyelitis)
[2016-02-22] MEDS: TYLENOL PO PRN (01:10)
[2016-02-22] MEDS: MORPHINE IV PRN ×4 (01:11→23:30)
[2016-02-22] MEDS ORDERED: VERSED IV NR (07:00)
[2016-02-22] MEDS ORDERED: PEPCID IV NR (07:00)
[2016-02-22] MEDS ORDERED: LACTATED RINGERS 1,000 ML ONE (07:09)
[2016-02-22] MEDS ORDERED: VERSED ONE (07:09)
[2016-02-22] MEDS ORDERED: PEPCID IV ONE (07:09)
--- NOTE | 2016-02-22 07:11 | Anesthesia Day of Surgery ---
Anesthesia Day of Surgery - Day of Surgery Patient Examined: Yes Patient H&P Reviewed: Yes Patient is NPO: Yes
[2016-02-22] MEDS ORDERED: ZOFRAN IV PRN (07:13)
[2016-02-22] MEDS: LACTATED RINGERS 1,000 ML IV SCH ×2 (07:14→18:50)
[2016-02-22] MEDS ORDERED: XYLOCAINE MPF 2% ONE (07:21)
[2016-02-22] MEDS ORDERED: ZEMURON IV ONE (07:21)
[2016-02-22] MEDS ORDERED: DILAUDID ONE ×2 (07:22→08:05)
[2016-02-22] MEDS ORDERED: DIPRIVAN 10 MG/ML IV ONE (07:22)
[2016-02-22] MEDS ORDERED: NACL 0.9% IR ONE (08:00)
[2016-02-22] MEDS ORDERED: HYDROGEN PEROXIDE TP ONE (08:00)
[2016-02-22] MEDS ORDERED: ZOFRAN ONE (08:04)
--- NOTE | 2016-02-22 08:19 | Post Operative Note ---
Pre-op diagnosis: osteomyolitis right sternoclavicular joint Post-op diagnosis: same Findings: osteomyolitis of the right Sternoclavicular joint- cultures sent Procedure: Debridement of right sternoclavicular joint Anesthesia: CB Surgeon: JOSÉ REBOLLEDO Estimated blood loss: minimal Pathology: list (aerobic and anaerobic cultures, gm stain) Condition: stable Disposition: floor
--- NOTE | 2016-02-22 08:42 | Post Anesthesia Evaluation ---
- Post Anesthesia Evaluation Patient Participated: Yes Airway Patent: Yes Stable Respiratory Function: Yes Temp > 96.8F: Yes Pain Manageable: Yes Adequeate Hydration: Yes Anesthesia Complications: No Block Receding Appropriately: Not Applicable
[2016-02-22] MEDS: DILAUDID IV PRN ×4 (08:47→09:18)
--- NOTE | 2016-02-22 09:34 | Progress Note ---
Assessment and Plan Current antibiotics: Vancomycin IV (see 02/19- - > Previous antibiotics: Zosyn 4.5 g IV X 1 02/19 Antiretrovirals: Stribild 1 tab po q day ASSESSMENT: Darren Shipley is a 40-year-old male with HIV infection who is well known to our practice as he is followed by Dr. Morley in our office who was admitted to [facility] on 02/20/16 with fever and chest pain and a CT of the chest showing right SC joint osteomyelitis and septic arthritis. Problem list: 1. Right sternoclavicular joint septic arthritis and osteomyelitis -Etiology unclear -Seems unlikely that this would be secondary to Shigella at this point 2. Fever -Secondary to #1 3. HIV infection -Well-controlled on ARVs (Stribild) 4. Leukocytosis -Secondary to #1 PLAN: 1. Blood cultures as have been done and are pending ( NGTD) 2. Await SC joint site cultures 4. continue Stribild 5. Supportive measures with pain control Subjective Date of service: 02/22/16 Interval history: Patient off floor for surgical right SC joint debridement. Found with destruction of joint and "pus". Cultures pending. Objective - Constitutional Vitals: Vital Signs Temp Pulse Resp BP Pulse Ox 99.6 F 91 H 16 131/85 97 02/22/16 08:30 02/22/16 09:00 02/22/16 09:18 02/22/16 09:00 02/22/16 09:00 Temperature -Last 24 Hours Temperature 99.6 F Temperature 99.0 F Temperature 99.0 F Temperature 100.6 F Temperature 101.6 F Temperature 102.9 F Temperature 98.8 F - Labs CBC & Chem 7: 02/21/16 17:44 02/21/16 14:41 Labs: Abnormal lab results 02/21/16 02/21/16 02/21/16 Range/Units 14:41 14:41 16:24 WBC (4.5-11.0) K/mm3 Hgb (11.8-15.2) gm/dl Hct (35.5-45.6) % RDW (13.2-15.2) % [place] % (Auto) (0.0-7.3) % [place] # (0.0-0.8) K/mm3 Seg Neutrophils % (40.0-70.0) % Seg Neutrophils # (1.8-7.7) K/mm3 Sodium 132 L (137-145) mmol/L Chloride 91.5 L (98-107) mmol/L Glucose 124 H (75-100) mg/dL POC Glucose 123 H (70-105) Lactic Acid 2.4 H* (0.7-2.0) mmol/L Albumin 3.0 L (3.9-5) g/dL 02/21/16 Range/Units 17:44 WBC 15.0 H (4.5-11.0) K/mm3 Hgb 11.6 L (11.8-15.2) gm/dl Hct 35.0 L (35.5-45.6) % RDW 13.0 L (13.2-15.2) % [place] % (Auto) 10.3 H (0.0-7.3) % [place] # 1.5 H (0.0-0.8) K/mm3 Seg Neutrophils % 73.9 H (40.0-70.0) % Seg Neutrophils # 11.1 H (1.8-7.7) K/mm3 Sodium (137-145) mmol/L Chloride (98-107) mmol/L Glucose (75-100) mg/dL POC Glucose (70-105) Lactic Acid (0.7-2.0) mmol/L Albumin (3.9-5) g/dL
--- NOTE | 2016-02-22 11:07 | XRay Report ---
PORTABLE CHEST INDICATION: Status post debridement of right sternoclavicular joint. COMPARISON: 02/20/2016 FINDINGS: Portable, frontal chest radiograph demonstrates a new catheter/drain looped over the right lung with its tip about the right sternoclavicular joint. Mild surrounding haziness and few overlying skin pritesh. Clear remainder lungs. Normal cardiomediastinal silhouette. Stable bones. CONCLUSION: Interval postsurgical changes about the right sternoclavicular joint, as described. Thank you for the opportunity to participate in this patient's care.
[2016-02-22] MEDS: VANCOMYCIN VIAL 2,000 MG in NACL 0.9% 500 ML 500 ML IV SCH ×2 (12:10→22:05)
[2016-02-22] MEDS ORDERED: [UNRECOGNIZED DRUG - OTHER] PO SCH (13:00)
--- NOTE | 2016-02-22 14:29 | Operative Report ---
PREOPERATIVE DIAGNOSIS: Osteomyelitis of the right sternoclavicular joint. POSTOPERATIVE DIAGNOSIS: Osteomyelitis of the right sternoclavicular joint. OPERATIVE FINDINGS: Osteomyelitis of the right SC joint. Aerobic and anaerobic bacterial cultures were sent along with a Gram stain. PROCEDURE: Debridement of the right sternoclavicular joint. ANESTHESIA: General. SURGEON: Nas Garcia M.D. BLOOD LOSS: Minimal. PATHOLOGY: Consisted of the cultures. CONDITION: Stable. A Vivek-Domingo drain was placed along, the wound was packed with iodoform gauze. DESCRIPTION OF PROCEDURE: After informed consent, the patient was brought to the operating room, induced under general anesthesia with compression stockings in place. He was already on IV antibiotics. He was sterilely prepped and draped in a supine fashion. Following induction of anesthesia, a transverse incision was made over the right SC or sternoclavicular joint with a 15 scalpel. Dissection plane was carried through the extracostal muscles down to the underlying SC joint. There was just garett pus or purulence in the joint space. This was debrided was a rongeur, all the necrotic bone was removed. It was washed out with dilute hydrogen peroxide and normal saline until completely clear. A 19 Vivek-Domingo drain was placed in the area and brought through a separate stab incision. The pus was sent for Gram stain, aerobic and anaerobic cultures. The wound was packed with quarter inch iodoform impregnated gauze which were brought out through the incision. The wound was closed in several layers utilizing interrupted 3-0 Vicryls and then pritesh were used for the skin. The sponge and needle count was correct x 2 at the completion of the procedure. The patient was hemodynamically stable throughout. JOB# [id number] DANA/DANIEL
--- NOTE | 2016-02-22 16:39 | Progress Note ---
Assessment and Plan Assessment and plan: 1. Right sternoclavicular joint septic arthritis and osteomyelitis Blood cultures and throat culture obtained Evaluated by ID, on vancomycin Thoracic surgery consulted and status post debridement today; cultures obtained Pain control medications 2. Leukocytosis, fever Secondary to #1 3. HiV infection Continue ARV ID recommendation 4. Intermittent elevated BP Most likely secondary to pain Monitor for now 5. DVT prophylaxis History Interval history: s/p debridement sternoclavicular joint Hospitalist Physical - Constitutional Vitals: Temp Pulse Resp BP Pulse Ox 98.4 F 98 H 20 131/79 98 02/22/16 11:30 02/22/16 11:30 02/22/16 11:30 02/22/16 11:30 02/22/16 11:30 General appearance: Present: no acute distress, well-nourished - EENT Eyes: Present: PERRL, EOM intact. Absent: scleral icterus, conjunctival injection - Neck Neck: Present: supple, normal ROM. Absent: masses or JVD - Respiratory Respiratory effort: normal Respiratory: bilateral: CTA, negative: rales, wheezing - Cardiovascular Rhythm: regular Heart Sounds: Present: S1 & S2. Absent: systolic murmur - Extremities Extremities: no ischemia - Abdominal General gastrointestinal: soft, non-tender, non-distended, normal bowel sounds - Psychiatric Psychiatric: cooperative - Neurologic Neurologic: CNII-XII intact, no focal deficits Results - Labs CBC & Chem 7: 02/21/16 17:44 02/21/16 14:41 Labs: Laboratory Last Values WBC 15.0 K/mm3 (4.5-11.0) H 02/21/16 17:44 RBC 3.77 M/mm3 (3.65-5.03) 02/21/16 17:44 Hgb 11.6 gm/dl (11.8-15.2) L 02/21/16 17:44 Hct 35.0 % (35.5-45.6) L 02/21/16 17:44 MCV 93 fl (84-94) 02/21/16 17:44 MCH 31 pg (28-32) 02/21/16 17:44 MCHC 33 % (32-34) 02/21/16 17:44 RDW 13.0 % (13.2-15.2) L 02/21/16 17:44 Plt Count 364 K/mm3 (140-440) 02/21/16 17:44 Lymph % (Auto) 15.1 % (13.4-35.0) 02/21/16 17:44 [place] % (Auto) 10.3 % (0.0-7.3) H 02/21/16 17:44 Eos % (Auto) 0.1 % (0.0-4.3) 02/21/16 17:44 Baso % (Auto) 0.6 % (0.0-1.8) 02/21/16 17:44 Lymph # 2.3 K/mm3 (1.2-5.4) 02/21/16 17:44 [place] # 1.5 K/mm3 (0.0-0.8) H 02/21/16 17:44 Eos # 0.0 K/mm3 (0.0-0.4) 02/21/16 17:44 Baso # 0.1 K/mm3 (0.0-0.1) 02/21/16 17:44 Seg Neutrophils % 73.9 % (40.0-70.0) H 02/21/16 17:44 Seg Neutrophils # 11.1 K/mm3 (1.8-7.7) H 02/21/16 17:44 PT 16.4 Sec. (12.2-14.9) H 02/20/16 10:03 INR 1.33 (0.87-1.13) H 02/20/16 10:03 VBG pH 7.405 (7.320-7.420) 02/20/16 10:03 Sodium 132 mmol/L (137-145) L 02/21/16 14:41 Potassium 4.8 mmol/L (3.6-5.0) 02/21/16 14:41 Chloride 91.5 mmol/L (98-107) L 02/21/16 14:41 Carbon Dioxide 27 mmol/L (22-30) 02/21/16 14:41 Anion Gap 18 mmol/L 02/21/16 14:41 BUN 12 mg/dL (9-20) 02/21/16 14:41 Creatinine 0.8 mg/dL (0.8-1.5) 02/21/16 14:41 Estimated GFR > 60 ml/min 02/21/16 14:41 BUN/Creatinine Ratio 15.00 % 02/21/16 14:41 Glucose 124 mg/dL (75-100) H 02/21/16 14:41 POC Glucose 123 (70-105) H 02/21/16 16:24 Lactic Acid 2.4 mmol/L (0.7-2.0) H* 02/21/16 14:41 Calcium 9.1 mg/dL (8.4-10.2) 02/21/16 14:41 Magnesium 2.0 mg/dL (1.7-2.3) 02/20/16 10:20 Total Bilirubin 0.4 mg/dL (0.1-1.2) 02/21/16 14:41 AST 23 units/L (5-40) 02/21/16 14:41 ALT 38 units/L (7-56) 02/21/16 14:41 Alkaline Phosphatase 66 units/L (35-129) 02/21/16 14:41 Total Creatine Kinase 41 units/L (55-170) L 02/20/16 10:03 CK-MB (CK-2) < 1.0 ng/mL (0.0-4.0) 02/20/16 10:03 CK-MB (CK-2) Rel Index 2.4 (0-4) 02/20/16 10:03 Troponin T < 0.010 ng/mL (0.00-0.029) 02/20/16 10:03 Total Protein 8.2 g/dL (6.3-8.2) 02/21/16 14:41 Albumin 3.0 g/dL (3.9-5) L 02/21/16 14:41 Albumin/Globulin Ratio 0.6 % 02/21/16 14:41 Urine Color [place] (Yellow) 02/20/16 10:50 Urine Turbidity Clear (Clear) 02/20/16 10:50 Urine pH 5.0 (5.0-7.0) 02/20/16 10:50 Ur Specific [place] 1.028 (1.003-1.030) 02/20/16 10:50 Urine Protein 100 mg/dl mg/dL (Negative) 02/20/16 10:50 Urine Glucose (UA) Neg mg/dL (Negative) 02/20/16 10:50 Urine Ketones Neg mg/dL (Negative) 02/20/16 10:50 Urine Blood Sm (Negative) 02/20/16 10:50 Urine Nitrite Neg (Negative) 02/20/16 10:50 Urine Bilirubin Neg (Negative) 02/20/16 10:50 Urine Urobilinogen < 2.0 mg/dL (<2.0) 02/20/16 10:50 Ur Leukocyte Esterase Neg (Negative) 02/20/16 10:50 Urine WBC (Auto) 2.0 /HPF (0.0-6.0) 02/20/16 10:50 Urine RBC (Auto) 2.0 /HPF (0.0-6.0) 02/20/16 10:50 U Epithel Cells (Auto) 1.0 /HPF (0-13.0) 02/20/16 10:50 Urine Mucus 1+ /HPF 02/20/16 10:50 Vancomycin Trough 6.0 ug/mL (5.0-20.0) 02/22/16 09:32
[2016-02-22] MEDS: PERCOCET 5/325 PO PRN (17:08)
[2016-02-23] MEDS: MORPHINE IV PRN ×3 (04:15→18:36)
[2016-02-23 07:54] LABS: Anion Gap 18 mmol/L; Basophils % (Auto) 0.5 % (0.0-1.8); Blood Urea Nitrogen 9 mg/dL (9-20); Calcium 9.1 mg/dL (8.4-10.2); Carbon Dioxide 29 mmol/L (22-30); Chloride 93.8 mmol/L (98-107); Eosinophils % (Auto) 1.1 % (0.0-4.3); Glucose 99 mg/dL (75-100); Hematocrit 33.2 % (35.5-45.6); Hemoglobin 11.2 gm/dl (11.8-15.2); Mean Corpuscular HGB Conc 34 % (32-34); Mean Corpuscular Hemoglobin 31 pg (28-32); Mean Corpuscular Volume 93 fl (84-94); Platelet Count 344 K/mm3 (140-440); Potassium 4.2 mmol/L (3.6-5.0); Red Blood Count 3.58 M/mm3 (3.65-5.03); Sodium 137 mmol/L (137-145); White Blood Count 10.8 K/mm3 (4.5-11.0)
[2016-02-23] MEDS: LACTATED RINGERS 1,000 ML IV SCH (09:45)
[2016-02-23] MEDS: [UNRECOGNIZED DRUG - OTHER] PO SCH (09:46)
[2016-02-23] MEDS: VANCOMYCIN VIAL 2,000 MG in NACL 0.9% 500 ML 500 ML IV SCH ×2 (11:30→20:40)
--- NOTE | 2016-02-23 11:46 | Progress Note ---
Assessment and Plan Current antibiotics: Vancomycin IV (see 02/19- - > Previous antibiotics: Zosyn 4.5 g IV X 1 02/19 Antiretrovirals: Stribild 1 tab po q day ASSESSMENT: Darren Shipley is a 40-year-old male with HIV infection who is well known to our practice as he is followed by Dr. Morley in our office who was admitted to [facility] on 02/20/16 with fever and chest pain and a CT of the chest showing right SC joint osteomyelitis and septic arthritis. Problem list: 1. Right sternoclavicular joint septic arthritis and osteomyelitis -Etiology unclear -Seems unlikely that this would be secondary to Shigella at this point 2. Fever -Secondary to #1 3. HIV infection -Well-controlled on ARVs (Stribild) -10/2015 CD4 count 706; HIV viral load 25 4. Leukocytosis -Secondary to above 5. Positive TB QuantiFERON assay -Hx of treatment for latent TB 2013 6. RPR +1:64 - 12/2014 -s/p IM penicillin every week 3 ( completed 02/2016) PLAN: 1. Blood cultures as have been done and are pending ( NGTD). Wound Gram stain with white cells. No growth to date. 2. Suggest PICC line placement. 3. Arrangement made for IV antibiotics through my office. Plan antibiotics for 6 weeks. 4. Should be able to be discharged 02/23 if otherwise stable. 5. continue Stribild Subjective Date of service: 02/23/16 Interval history: Patient notes decreased right chest wall pain. Review of office data includes 10/2015 HIV viral load of 25 and CD4 count of 706. Patient also with positive TB QuantiFERON assay. He describes [facility]. Also note patient with recent RPR 1:64. He did receive weekly IM penicillin for 3 weeks time. Patient just completed this therapy prior to admission to the hospital now. Objective - Exam Narrative Exam: - Physical Exam Narrative exam: GENERAL: Well-developed, well-nourished appearing male who is alert and in no acute distress. He appears only mildly ill. HEAD: Normocephalic. No lesions seen. EYES: Pupils are equal reactive to light and accommodation. There is no scleral icterus. Optic fundi are not examined. EARS: Tympanic membranes are normal. THROAT: Oropharynx is normal with no evidence of oral candidiasis or pharyngitis. NECK: Supple. No enlargement of the thyroid gland. No significant cervical lymphadenopathy. No jugular venous distention at 30. LUNGS: Clear with no adventitious sounds. CHEST: Right chest wall dressing is dry. Not removed. HEART: Regular rate. S1 and S2 are normal. There are no murmurs, gallops, clicks or rubs heard. ABDOMEN: Soft and nontender. Liver and spleen are not palpably enlarged or tender. No palpable masses. Bowel sounds are normoactive. EXTREMITIES: No rash, peripheral lymphadenopathy, clubbing or edema. Able to move right arm- but painful on attempt. : Not examined NEUROLOGIC: No focal findings. - Constitutional Vitals: Vital Signs Temp Pulse Resp BP Pulse Ox 98.8 F 78 20 128/75 96 02/23/16 08:40 02/23/16 08:40 02/23/16 08:40 02/23/16 08:40 02/23/16 08:40 Temperature -Last 24 Hours Temperature 98.8 F Temperature 98.4 F Temperature 99.9 F - Labs CBC & Chem 7: 02/23/16 07:04 02/23/16 07:04 Labs: Abnormal lab results 02/23/16 02/23/16 Range/Units 07:04 07:04 RBC 3.58 L (3.65-5.03) M/mm3 Hgb 11.2 L (11.8-15.2) gm/dl Hct 33.2 L (35.5-45.6) % RDW 13.0 L (13.2-15.2) % [place] % (Auto) 12.1 H (0.0-7.3) % [place] # 1.3 H (0.0-0.8) K/mm3 Chloride 93.8 L (98-107) mmol/L
[2016-02-23] MEDS: PERCOCET 5/325 PO PRN ×2 (14:28→23:10)
--- NOTE | 2016-02-23 16:32 | Progress Note ---
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 Medical records and medication list reviewed. No acute event overnight noted by the RN. Patient complains of right arm pain and musculoskeletal chest pain. He is tolerating diet. Plan discussed with Dr. daugherty, patient will get a PICC line today and plan for discharge tomorrow. Discussed plan of care at bedside with patient. Hospitalist Physical - Physical exam Narrative exam: GENERAL: well-developed and well-nourished -[place] male lying on bed appeared to be in no discomfort. HEENT: Normocephalic. Atraumatic. No conjunctival congestion or icterus. Patient has moist mucous membranes. NECK: Supple. Trachea midline. CHEST/LUNGS: Clear to auscultated bilaterally, breathing nonlabored. No wheezes crackles or rhonchi. HEART/CARDIOVASCULAR: Regular in rate and rhythm. S1 and S2 positive. Surgical dressing on the right sternal clavicular joint area ABDOMEN: Abdomen is soft, nontender. Patient has normal bowel sounds. SKIN: There is no rash. Warm and dry. NEURO: No focal motor deficit. Follows command. MUSCULOSKELETAL: Right shoulder pain on motion, no swelling or tenderness noted EXTRIMITY: No edema, no cyanosis or clubbing. PSYCH: Cooperative. - Constitutional Vitals: Temp Pulse Resp BP Pulse Ox 98.8 F 78 20 128/75 96 02/23/16 08:40 02/23/16 08:40 02/23/16 08:40 02/23/16 08:40 02/23/16 08:40 General appearance: Present: no acute distress, well-nourished Results - Labs CBC & Chem 7: 02/23/16 07:04 02/23/16 07:04 Labs: Laboratory Last Values WBC 10.8 K/mm3 (4.5-11.0) 02/23/16 07:04 RBC 3.58 M/mm3 (3.65-5.03) L 02/23/16 07:04 Hgb 11.2 gm/dl (11.8-15.2) L 02/23/16 07:04 Hct 33.2 % (35.5-45.6) L 02/23/16 07:04 MCV 93 fl (84-94) 02/23/16 07:04 MCH 31 pg (28-32) 02/23/16 07:04 MCHC 34 % (32-34) 02/23/16 07:04 RDW 13.0 % (13.2-15.2) L 02/23/16 07:04 Plt Count 344 K/mm3 (140-440) 02/23/16 07:04 Lymph % (Auto) 22.9 % (13.4-35.0) 02/23/16 07:04 [place] % (Auto) 12.1 % (0.0-7.3) H 02/23/16 07:04 Eos % (Auto) 1.1 % (0.0-4.3) 02/23/16 07:04 Baso % (Auto) 0.5 % (0.0-1.8) 02/23/16 07:04 Lymph # 2.5 K/mm3 (1.2-5.4) 02/23/16 07:04 [place] # 1.3 K/mm3 (0.0-0.8) H 02/23/16 07:04 Eos # 0.1 K/mm3 (0.0-0.4) 02/23/16 07:04 Baso # 0.1 K/mm3 (0.0-0.1) 02/23/16 07:04 Seg Neutrophils % 63.4 % (40.0-70.0) 02/23/16 07:04 Seg Neutrophils # 6.8 K/mm3 (1.8-7.7) 02/23/16 07:04 PT 16.4 Sec. (12.2-14.9) H 02/20/16 10:03 INR 1.33 (0.87-1.13) H 02/20/16 10:03 VBG pH 7.405 (7.320-7.420) 02/20/16 10:03 Sodium 137 mmol/L (137-145) 02/23/16 07:04 Potassium 4.2 mmol/L (3.6-5.0) 02/23/16 07:04 Chloride 93.8 mmol/L (98-107) L 02/23/16 07:04 Carbon Dioxide 29 mmol/L (22-30) 02/23/16 07:04 Anion Gap 18 mmol/L 02/23/16 07:04 BUN 9 mg/dL (9-20) 02/23/16 07:04 Creatinine 0.9 mg/dL (0.8-1.5) 02/23/16 07:04 Estimated GFR > 60 ml/min 02/23/16 07:04 BUN/Creatinine Ratio 10.00 % 02/23/16 07:04 Glucose 99 mg/dL (75-100) 02/23/16 07:04 POC Glucose 123 (70-105) H 02/21/16 16:24 Lactic Acid 1.8 mmol/L (0.7-2.0) 02/22/16 17:31 Calcium 9.1 mg/dL (8.4-10.2) 02/23/16 07:04 Ionized Calcium 5.5 mg/dL (4.8-5.6) 02/20/16 10:14 Magnesium 2.0 mg/dL (1.7-2.3) 02/20/16 10:20 Total Bilirubin 0.4 mg/dL (0.1-1.2) 02/21/16 14:41 AST 23 units/L (5-40) 02/21/16 14:41 ALT 38 units/L (7-56) 02/21/16 14:41 Alkaline Phosphatase 66 units/L (35-129) 02/21/16 14:41 Total Creatine Kinase 41 units/L (55-170) L 02/20/16 10:03 CK-MB (CK-2) < 1.0 ng/mL (0.0-4.0) 02/20/16 10:03 CK-MB (CK-2) Rel Index 2.4 (0-4) 02/20/16 10:03 Troponin T < 0.010 ng/mL (0.00-0.029) 02/20/16 10:03 Total Protein 8.2 g/dL (6.3-8.2) 02/21/16 14:41 Albumin 3.0 g/dL (3.9-5) L 02/21/16 14:41 Albumin/Globulin Ratio 0.6 % 02/21/16 14:41 Urine Color [place] (Yellow) 02/20/16 10:50 Urine Turbidity Clear (Clear) 02/20/16 10:50 Urine pH 5.0 (5.0-7.0) 02/20/16 10:50 Ur Specific [place] 1.028 (1.003-1.030) 02/20/16 10:50 Urine Protein 100 mg/dl mg/dL (Negative) 02/20/16 10:50 Urine Glucose (UA) Neg mg/dL (Negative) 02/20/16 10:50 Urine Ketones Neg mg/dL (Negative) 02/20/16 10:50 Urine Blood Sm (Negative) 02/20/16 10:50 Urine Nitrite Neg (Negative) 02/20/16 10:50 Urine Bilirubin Neg (Negative) 02/20/16 10:50 Urine Urobilinogen < 2.0 mg/dL (<2.0) 02/20/16 10:50 Ur Leukocyte Esterase Neg (Negative) 02/20/16 10:50 Urine WBC (Auto) 2.0 /HPF (0.0-6.0) 02/20/16 10:50 Urine RBC (Auto) 2.0 /HPF (0.0-6.0) 02/20/16 10:50 U Epithel Cells (Auto) 1.0 /HPF (0-13.0) 02/20/16 10:50 Urine Mucus 1+ /HPF 02/20/16 10:50 Vancomycin Trough 6.0 ug/mL (5.0-20.0) 02/22/16 09:32
--- NOTE | 2016-02-23 17:24 | Event Note ---
Date: 02/23/16 POD 1 s/p debridement of right Sternoclavicular joint, leave packing and drain until tommorrow, antibiotics per INF DZ, little else to add at present.
[2016-02-24] MEDS: LACTATED RINGERS 1,000 ML IV SCH (00:20)
[2016-02-24] MEDS: MORPHINE IV PRN ×2 (04:20→08:08)
[2016-02-24] MEDS: VANCOMYCIN VIAL 2,000 MG in NACL 0.9% 500 ML 500 ML IV SCH ×2 (04:20→13:34)
--- NOTE | 2016-02-24 07:50 | Event Note ---
Date: 02/24/16 POD 2, VSS AF, drain and packing removed, leave pritesh at least 10 days, patient can be discharged from Thoracic standpoint, shower daily, soap and water on wound. I will see in my office in one week.
--- NOTE | 2016-02-24 10:17 | Discharge Summary ---
Providers - Providers Date of Admission: 02/20/16 14:18 Date of discharge: 02/24/16 Attending physician: NELI ORTEZ 02/20/16 14:21 Consult to Physician [CONS] Routine Consulting Provider: BERNICE HODGSON Reason For Exam: HIV Place consult to:: [place] Notified:: PLEASE CALL MD IN AM Was contact made?: Yes Comment:: ED doctor made contact. was advised to Place on their list 02/20/16 23:29 Consult to Physician [CONS] Routine Consulting Provider: JOSÉ REBOLLEDO Reason For Exam: Osteomyelitis of right SC joint Place consult to:: soteomyelitis of right SC joint Notified:: office Phone number called:: [phone] Was contact made?: Yes If yes, spoke with:: yamil Time called:: 09:02 02/23/16 16:31 Consult to PICC Line RN [CONS] Routine Reason For Exam: IV abx requirement on discharge Type Line:: PICC Primary care physician: [employer]INE[employer] Hospitalization Condition: Fair Hospital course: Discharge diagnosis: Right sternoclavicular joint septic arthritis and osteomyelitis * Blood cultures and throat culture negative * Continue on vancomycin per ID recommendation * Thoracic surgery consulted and status post debridement on 02/22/16; * Surgical culture did not grow any organism Leukocytosis, fever * Likely due to sepsis Secondary to osteomyelitis HiV infection * Continue ARV ID recommendation * 10/2015 CD4 count 706; HIV viral load 25 History of less than TB * Positive TB QuantiFERON assay * Treated for latent TB on 2013 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 HEENT: Normocephalic. Atraumatic. No conjunctival congestion or icterus. Patient has moist mucous membranes. NECK: Supple. Trachea midline. CHEST/LUNGS: Clear to auscultated bilaterally, breathing nonlabored. No wheezes crackles or rhonchi. HEART/CARDIOVASCULAR: Regular in rate and rhythm. S1 and S2 positive. Surgical dressing on the right sternal clavicular joint area ABDOMEN: Abdomen is soft, nontender. Patient has normal bowel sounds. SKIN: There is no rash. Warm and dry. NEURO: No focal motor deficit. Follows command. MUSCULOSKELETAL: Right shoulder pain on motion, no swelling or tenderness noted EXTRIMITY: No edema, no cyanosis or clubbing. PSYCH: Cooperative. - Constitutional Vitals: Temp Pulse Resp BP Pulse Ox 98.1 F 78 18 131/85 99 02/24/16 07:47 02/24/16 07:47 02/24/16 07:47 02/24/16 07:47 02/24/16 07:47 Plan Activity: no restrictions Diet: regular Follow up with: PRIMARY CARE, [Primary Care Provider] - 3-5 Days Prescriptions: Ciprofloxacin HCl [Ciprofloxacin TAB] 500 mg PO Q12H #20 tab oxyCODONE /ACETAMINOPHEN [Percocet 5/325 mg] 1 tab PO Q4H PRN #30 tablet PRN Reason: Pain, Moderate (4-6) Vancomycin Vial 2,000 mg IV Q8H #10 vial
[2016-02-24] MEDS: [UNRECOGNIZED DRUG - OTHER] PO SCH (10:21)
--- NOTE | 2016-02-24 10:33 | XRay Report ---
Portable chest: Compared to the prior study of February 21 drainage tube has been removed from the right sternoclavicular region. There is still a slight haziness over this area with closure pritesh. There is mild atelectasis at the left base which is slightly increased since prior study. A left PICC line has been introduced with the tip in the low SVC. Impression: 1. PICC placement 2. Minimal increase in left basilar atelectasis
--- NOTE | 2016-02-24 11:20 | Progress Note ---
Assessment and Plan Current antibiotics: Vancomycin IV (see 02/19- - > Previous antibiotics: Zosyn 4.5 g IV X 1 02/19 Antiretrovirals: Stribild 1 tab po q day ASSESSMENT: Darren Shipley is a 40-year-old male with HIV infection who is well known to our practice as he is followed by Dr. Morley in our office who was admitted to [facility] on 02/20/16 with fever and chest pain and a CT of the chest showing right SC joint osteomyelitis and septic arthritis. Problem list: 1. Right sternoclavicular joint septic arthritis and osteomyelitis -Etiology unclear -Seems unlikely that this would be secondary to Shigella at this point - Surgical Gram stain with polys, without organisms. Cultures without growth 2. Fever -Secondary to #1 3. HIV infection -Well-controlled on ARVs (Stribild) -10/2015 CD4 count 706; HIV viral load 25 4. Leukocytosis -Secondary to above 5. Positive TB QuantiFERON assay -Hx of treatment for latent TB 2013 6. RPR +1:64 - 12/2014 -s/p IM penicillin every week 3 ( completed 02/2016) PLAN: 1. Blood cultures as have been done and are pending ( NGTD). Wound Gram stain with white cells. No growth to date. 2. Arrangement made for IV vancomycin through my office. Plan antibiotics for 6 weeks. 3. Would suggest oral ciprofloxacin 500 mg twice a day 4. continue Stribild 5. Will follow up in the office. Subjective Date of service: 02/24/16 Interval history: Continues with improved chest wall site pain. Discussed outpatient IV vancomycin. We'll also recommend oral ciprofloxacin 400 mg twice daily. Suggest 6 course of antibiotics. Objective - Exam Narrative Exam: - Physical Exam Narrative exam: GENERAL: Well-developed, well-nourished appearing male who is alert and in no acute distress. HEAD: Normocephalic. No lesions seen. EYES: Pupils are equal reactive to light and accommodation. There is no scleral icterus. Optic fundi are not examined. EARS: Tympanic membranes are normal. THROAT: Oropharynx is normal with no evidence of oral candidiasis or pharyngitis. NECK: Supple. No enlargement of the thyroid gland. No significant cervical lymphadenopathy. No jugular venous distention at 30. LUNGS: Clear with no adventitious sounds. CHEST: Right chest wall dressing is dry. Sutures are without redness. HEART: Regular rate. S1 and S2 are normal. There are no murmurs, gallops, clicks or rubs heard. ABDOMEN: Soft and nontender. Liver and spleen are not palpably enlarged or tender. No palpable masses. Bowel sounds are normoactive. EXTREMITIES: No rash, peripheral lymphadenopathy, clubbing or edema. Able to move right arm- but painful on attempt. : Not examined NEUROLOGIC: No focal findings. - Constitutional Vitals: Vital Signs Temp Pulse Resp BP Pulse Ox 98.1 F 78 18 131/85 99 02/24/16 07:47 02/24/16 07:47 02/24/16 07:47 02/24/16 07:47 02/24/16 07:47 Temperature -Last 24 Hours Temperature 98.1 F Temperature 98.3 F Temperature 98.7 F Temperature 99.2 F - Labs CBC & Chem 7: 02/23/16 07:04 02/23/16 07:04
[2016-02-24] MEDS ORDERED: PNEUMOVAX 23 IM ONE (13:06)
[2016-02-24] MEDS: PERCOCET 5/325 PO PRN (13:34)
[2016-02-24 15:08] VITALS: BP 120/77
== END 2016-02-24 15:55 | disposition home health service (06) | DRG 969 ==
LOC: ED 09:15 → 3A 14:18
PROVIDERS: ADMIT Family Medicine; ATTEND Internal Medicine
PROC: 4A033R1 Measurement of Arterial Saturation, Peripheral, Percutaneous Approach (ICD-10-PCS; 2016-02-20)
PROC: 0RBE0ZZ Excision of Right Sternoclavicular Joint, Open Approach (ICD-10-PCS; principal; 2016-02-22)
PROC: 0R9 Upper Joints, Drainage (ICD-10-PCS; 2016-02-22)
PROC: 02HV33Z Insertion of Infusion Device into Superior Vena Cava, Percutaneous Approach (ICD-10-PCS; 2016-02-24)
DX: B20 Human immunodeficiency virus [HIV] disease (principal); A41.9 Sepsis, unspecified organism; M86.8X8 Other osteomyelitis, other site; M00.9 Pyogenic arthritis, unspecified; Z88.1 Allergy status to other antibiotic agents; Z88.8 Allergy status to other drugs, medicaments and biological substances
CPT/HCPCS: 36415; 71010; 71020; 71260; 80048; 80053; 80202; 81001; 82140; 82330; 82550; 82553; 82805; 82962; 83735; 84484; 85025; 85610; 87040; 87075; 87086; 87116; 87400; 87430; 90686; 90732; 93005; 93010; 94640; 96361; 96365; 96366; 96367; J1170; J1650; J2250; J2270; J2405; J2543; J2704; J3370; J7030; J7040; J7120; Q9967

== ENCOUNTER 2016-02-26 23:10 | Inpatient (IN) | payer OTHER ==
[2016-02-27 00:04] LABS: Basophils % (Auto) 0.4 % (0.0-1.8); Hematocrit 34.6 % (35.5-45.6); Hemoglobin 11.9 gm/dl (11.8-15.2); Mean Corpuscular HGB Conc 34 % (32-34); Mean Corpuscular Hemoglobin 31 pg (28-32); Mean Corpuscular Volume 91 fl (84-94); Platelet Count 395 K/mm3 (140-440); Red Blood Count 3.79 M/mm3 (3.65-5.03); Red Cell Distribution Width 13.1 % (13.2-15.2); White Blood Count 14.6 K/mm3 (4.5-11.0)
[2016-02-27 00:14] LABS: INR 1.25 (0.87-1.13)
[2016-02-27 00:26] LABS: Alanine Aminotransferase 69 units/L (7-56); Albumin 3.1 g/dL (3.9-5); Albumin/Globulin Ratio 0.6 %; Alkaline Phosphatase 72 units/L (35-129); Bilirubin,Total 0.5 mg/dL (0.1-1.2); Blood Urea Nitrogen 9 mg/dL (9-20); Carbon Dioxide 25 mmol/L (22-30); Chloride 90.6 mmol/L (98-107); Glucose 134 mg/dL (75-100); Potassium 3.6 mmol/L (3.6-5.0); Sodium 131 mmol/L (137-145); Total Protein 7.9 g/dL (6.3-8.2)
[2016-02-27 00:27] LABS: Anion Gap 19 mmol/L
--- NOTE | 2016-02-27 02:19 | Emergency Department Report ---
ED N/V/D HPI - General Chief complaint: Nausea/Vomiting/Diarrhea Stated complaint: FEVER, DIARRHEA Time Seen by Provider: 02/27/16 01:54 Source: patient Mode of arrival: Ambulatory Limitations: No Limitations - History of Present Illness Initial comments: 40-year-old male presents to the emergency department complaining of fever and diarrhea beginning yesterday. Fever has been up to 104F. Diarrhea is described as watery. He denies seeing any blood. Patient was recently admitted and discharged from the hospital with osteomyelitis of the right chest wall. A she underwent surgery and was recently discharged. Patient is currently receiving IV vancomycin and ciprofloxacin for a PICC line. Patient was instructed to come to the emergency department by his infectious disease doctor. There are no other complaints. MD complaint: diarrhea -: Gradual, days(s) (1) Description of Diarrhea: water Associated Abdominal Pain: No Improves with: none Worsens with: none Context: recent anitbiotic use, recent surgery/procedure Associated Symptoms: fever/chills - Related Data Home Medications Medication Instructions Recorded Confirmed Last Taken Elvitegr/Cobicist/Emtric/Tenof 1 each PO DAILY 02/20/16 02/27/16 Unknown [Stribild Tablet] Previous Rx's Medication Instructions Recorded Last Taken Type Ciprofloxacin HCl [Ciprofloxacin 500 mg PO Q12H #20 tab 02/24/16 Unknown Rx TAB] Vancomycin Vial 2,000 mg IV Q8H #10 vial 02/24/16 Unknown Rx oxyCODONE /ACETAMINOPHEN [Percocet 1 tab PO Q4H PRN #30 tablet 02/24/16 Unknown Rx 5/325 mg] Allergies Allergy/AdvReac Type Severity Reaction Status Date / Time amoxicillin trihydrate AdvReac Unknown Verified 02/03/16 17:24 [From Augmentin] potassium clavulanate AdvReac Unknown Verified 02/03/16 17:24 [From Augmentin] ED Review of Systems ROS: Stated complaint: FEVER, DIARRHEA Other details as noted in HPI Comment: All other systems reviewed and negative Constitutional: fever Gastrointestinal: diarrhea ED Past Medical Hx - Past Medical History Previous Medical History?: Yes Hx Deep Vein Thrombosis: No Hx HIV: Yes Additional medical history: recent foot infection, osteomyelitis - Surgical History Past Surgical History?: Yes Hx Pacemaker: No Hx Internal Defibrillator: No Additional Surgical History: hernia repair, 'bone cleaned' to right upper chest - Family History Family history: no significant - Social History Smoking Status: Former Smoker Substance Use Type: None - Medications Home Medications: Home Medications Medication Instructions Recorded Confirmed Last Taken Type Elvitegr/Cobicist/Emtric/Tenof 1 each PO DAILY 02/20/16 02/27/16 Unknown History [Stribild Tablet] Ciprofloxacin HCl [Ciprofloxacin 500 mg PO Q12H #20 tab 02/24/16 02/27/16 Unknown Rx TAB] Vancomycin Vial 2,000 mg IV Q8H #10 vial 02/24/16 02/27/16 Unknown Rx oxyCODONE /ACETAMINOPHEN [Percocet 1 tab PO Q4H PRN #30 tablet 02/24/16 Unknown Rx 5/325 mg] ED Physical Exam - General Limitations: No Limitations General appearance: alert, in no apparent distress - Head Head exam: Present: atraumatic, normocephalic - Eye Eye exam: Present: normal appearance, PERRL, EOMI - ENT ENT exam: Present: normal exam, normal orophraynx, mucous membranes moist - Neck Neck exam: Present: normal inspection, full ROM. Absent: tenderness - Respiratory Respiratory exam: Present: normal lung sounds bilaterally. Absent: respiratory distress - Cardiovascular Cardiovascular Exam: Present: normal rhythm, tachycardia, normal heart sounds - GI/Abdominal GI/Abdominal exam: Present: soft, normal bowel sounds. Absent: distended, tenderness - Extremities Exam Extremities exam: Present: normal inspection, full ROM. Absent: tenderness - Back Exam Back exam: Present: normal inspection, full ROM. Absent: tenderness - Neurological Exam Neurological exam: Present: alert, oriented X3. Absent: motor sensory deficit - Skin Skin exam: Present: warm, dry, intact ED Course Vital Signs 02/26/16 02/27/16 02/27/16 23:19 00:44 00:46 Temperature 97.7 F 98.5 F Pulse Rate 105 H 90 Respiratory 20 20 20 Rate Blood Pressure 117/69 Blood Pressure 124/70 [Right] O2 Sat by Pulse 96 93 93 Oximetry ED Medical Decision Making - Lab Data Result diagrams: 02/26/16 23:41 02/26/16 23:41 - Radiology Data Radiology results: image reviewed interpreted by me: Chest x-ray shows no acute cardiopulmonary abnormality. - Medical Decision Making Lab and imaging results reviewed and discussed with the patient and family. Blood cultures have been obtained. Stool is being sent for C. difficile. Patient is to be admitted by the hospitalist. - Differential Diagnosis enteritis, C. difficile, dehydration, electrolyte abnormality Critical care attestation.: If time is entered above; I have spent that time in minutes in the direct care of this critically ill patient, excluding procedure time. ED Disposition Clinical Impression: HIV (human immunodeficiency virus infection) Diarrhea Qualifiers: Diarrhea type: presumed infectious Qualified Code(s): A09 - Infectious gastroenteritis and colitis, unspecified Disposition: OP ADMITTED IP TO THIS HOSP Is pt being admited?: Yes Condition: Stable Time of Disposition: 02:14
[2016-02-27] MEDS ORDERED: NACL 0.9% 1000 ML 1,000 ML IV ONE (02:24)
--- NOTE | 2016-02-27 04:00 | History and Physical Report ---
History of Present Illness Date of examination: 02/27/16 Chief complaint: Fever and diarrhea History of present illness: 40-year-old -[place] male with past medical history significant for HIV on medication, recent diagnosis of osteomyelitis of his chest wall presented to the emergency department complaining of fever 104 and diarrhea. The diarrhea is watery, no blood mixed in it, no associated tenesmus or abdominal pain. Patient was admitted recently for osteomyelitis and discharge it home with his IV antibiotics through PICC line to finish a total of [address] daugherty following him in his clinic. REVIEW OF SYSTEMS: GENERAL: no weight change, no fatigue HEAD: no head ache EYES: no blurry vision, no acute visual loss EARS: no hearing loss, no discharge, no earache NOSE: no stuffiness, no sneezing, no discharge MOUTH, THROAT AND NECK: no bleeding gums, no sore throat, no swollen neck CARDIAC: no palpitations, no dyspnea on exertion, no orthopnea, no PND, no edema , no chest pain RESPIRATORY: no shortness of breath, no wheeze, no cough, no sputum, no hemoptysis, no asthma GI: no decreased appetite, no nausea, no vomiting, no dysphagia, no diarrhea, no constipation, no abdominal pain URINARY: no change in frequency, no urgency, no polyuria, no hematuria, no incontinence MUSCULOSKELETAL: no muscle weakness, no pain, no joint stiffness NEUROLOGIC: no loss of sensation/numbness, no tingling, no tremors, no weakness/ paralysis HEMATOLOGIC: no anemia, no easy bruising ENDOCRINE: no heat/cold intolerance, no polyuria, no polydipsia, no thyroid problems, no diabetes PSYCHIATRIC: no anxiety, no depression, no suicidal ideations Past History Past Medical History: HIV/AIDS, other (osteomyelitis) Past Surgical History: Other (debridement of osteomyelitis) Social history: full code. denies: smoking, alcohol abuse, prescription drug abuse, IV drug use Family history: denies: CAD, stroke Medications and Allergies Allergies Allergy/AdvReac Type Severity Reaction Status Date / Time amoxicillin trihydrate AdvReac Unknown Verified 02/03/16 17:24 [From Augmentin] potassium clavulanate AdvReac Unknown Verified 02/03/16 17:24 [From Augmentin] Home Medications Medication Instructions Recorded Confirmed Last Taken Type Elvitegr/Cobicist/Emtric/Tenof 1 each PO DAILY 02/20/16 02/27/16 Unknown History [Stribild Tablet] Ciprofloxacin HCl [Ciprofloxacin 500 mg PO Q12H #20 tab 02/24/16 02/27/16 Unknown Rx TAB] Vancomycin Vial 2,000 mg IV Q8H #10 vial 02/24/16 02/27/16 Unknown Rx oxyCODONE /ACETAMINOPHEN [Percocet 1 tab PO Q4H PRN #30 tablet 02/24/16 Unknown Rx 5/325 mg] Exam - Constitutional Vitals: Temp Pulse Resp BP Pulse Ox 98.5 F 90 20 124/70 93 02/27/16 00:44 02/27/16 00:44 02/27/16 00:46 02/27/16 00:44 02/27/16 00:46 Results - Labs CBC & Chem 7: 02/26/16 23:41 02/26/16 23:41 Labs: Laboratory Last Values WBC 14.6 K/mm3 (4.5-11.0) H 02/26/16 23:41 RBC 3.79 M/mm3 (3.65-5.03) 02/26/16 23:41 Hgb 11.9 gm/dl (11.8-15.2) 02/26/16 23:41 Hct 34.6 % (35.5-45.6) L 02/26/16 23:41 MCV 91 fl (84-94) 02/26/16 23:41 MCH 31 pg (28-32) 02/26/16 23:41 MCHC 34 % (32-34) 02/26/16 23:41 RDW 13.1 % (13.2-15.2) L 02/26/16 23:41 Plt Count 395 K/mm3 (140-440) 02/26/16 23:41 Lymph % (Auto) 11.4 % (13.4-35.0) L 02/26/16 23:41 White % (Auto) 11.2 % (0.0-7.3) H 02/26/16 23:41 Eos % (Auto) 0.0 % (0.0-4.3) 02/26/16 23:41 Baso % (Auto) 0.4 % (0.0-1.8) 02/26/16 23:41 Lymph # 1.7 K/mm3 (1.2-5.4) 02/26/16 23:41 White # 1.6 K/mm3 (0.0-0.8) H 02/26/16 23:41 Eos # 0.0 K/mm3 (0.0-0.4) 02/26/16 23:41 Baso # 0.1 K/mm3 (0.0-0.1) 02/26/16 23:41 Seg Neutrophils % 77.0 % (40.0-70.0) H 02/26/16 23:41 Seg Neutrophils # 11.3 K/mm3 (1.8-7.7) H 02/26/16 23:41 PT 15.6 Sec. (12.2-14.9) H 02/26/16 23:41 INR 1.25 (0.87-1.13) H 02/26/16 23:41 VBG pH 7.402 (7.320-7.420) 02/26/16 23:41 Sodium 131 mmol/L (137-145) L 02/26/16 23:41 Potassium 3.6 mmol/L (3.6-5.0) 02/26/16 23:41 Chloride 90.6 mmol/L (98-107) L 02/26/16 23:41 Carbon Dioxide 25 mmol/L (22-30) 02/26/16 23:41 Anion Gap 19 mmol/L 02/26/16 23:41 BUN 9 mg/dL (9-20) 02/26/16 23:41 Creatinine 0.9 mg/dL (0.8-1.5) 02/26/16 23:41 Estimated GFR > 60 ml/min 02/26/16 23:41 BUN/Creatinine Ratio 10.00 % 02/26/16 23:41 Glucose 134 mg/dL (75-100) H 02/26/16 23:41 Lactic Acid 0.8 mmol/L (0.7-2.0) 02/27/16 02:45 Calcium 9.0 mg/dL (8.4-10.2) 02/26/16 23:41 Total Bilirubin 0.5 mg/dL (0.1-1.2) 02/26/16 23:41 AST 33 units/L (5-40) 02/26/16 23:41 ALT 69 units/L (7-56) H 02/26/16 23:41 Alkaline Phosphatase 72 units/L (35-129) 02/26/16 23:41 Total Protein 7.9 g/dL (6.3-8.2) 02/26/16 23:41 Albumin 3.1 g/dL (3.9-5) L 02/26/16 23:41 Albumin/Globulin Ratio 0.6 % 02/26/16 23:41 - Imaging and Cardiology Chest x-ray: image reviewed (no acute cardiopulmonary process identified) Assessment and Plan Assessment and plan: Acute gastroenteritis Fever Leukocytosis Sepsis HIV Osteomyelitis - IV fluid - c.diff toxin - Empiric IV metronidazole - Continue his HIV medications - Continue to monitor medications - ID consult DVT prophylaxis - lovenox Disposition - admit to inpatient care. Advance Directives: Yes VTE prophylaxis?: Chemical Plan of care discussed with patient/family: Yes
[2016-02-27 04:05] LABS: Bilirubin,Urine NEG (Negative); Blood,Urine MOD (Negative); Ketones,Urine 20 mg/dL (Negative); Leukocyte Esterase,Urine NEG (Negative); Mucus,Urine FEW /HPF; Nitrite,Urine NEG (Negative); Urobilinogen,Urine < 2.0 mg/dL (<2.0)
[2016-02-27] MEDS: NACL 0.9% 1000 ML 1,000 ML IV SCH ×2 (04:31→20:02)
[2016-02-27] MEDS ORDERED: NACL 0.9% 1000 ML 1,000 ML ONE (05:20)
[2016-02-27] MEDS: FLAGYL 500 MG/100 ML 100 ML IV SCH ×2 (06:15→14:00)
--- NOTE | 2016-02-27 09:55 | XRay Report ---
AP CHEST: HISTORY: Sepsis No change since 02/24/16. Surgical changes at the right sternoclavicular joint are again noted. The lungs remain clear. No pleural effusion or pneumothorax. Normal heart and mediastinal structures. IMPRESSION: No acute cardiopulmonary process.
[2016-02-27] MEDS ORDERED: [UNRECOGNIZED DRUG - OTHER] PO SCH (10:00)
[2016-02-27] MEDS: LOVENOX SUB-Q SCH (10:00)
--- NOTE | 2016-02-27 13:29 | Consultation ---
History of Present Illness - Reason for Consult Consult date: 02/27/16 diarrhea and fever Requesting physician: DIONICIO MINER - History of Present Illness This is a 40 year old man with HIV infection followed by Dr. Alberto, he is on anti-retroviral therapy namely Stribild. He said he is 100% adherent. His CD4 count was 706 with a viral load of 25 in October of 2015. He presented to [facility] on 02/20/16 with fever and chest pain, CT scan of the chest revealed bony destruction of both sides of the right sternoclavicular joint with surround soft tissue swelling. He underwent incision and debridement on 02/22/16, intraoperative culture no growth. He was discharged on vancomycin and cipro to complete 6 weeks for osteomyelitis. Patient reports that he started to feel weak and tired on Sunday (02/25/16), on Sunday he started to develop nausea, diarrhea with fever. His temperature was found to be 104, his gave him tylenol that brought the temp to 103.8 after 40 minutes then it was normal after 3 hours. At 10 pm he called the ID answering service with this information and it was recommended for him to come to the ER. He said he is feeling better since he has been in the hospital, only had one bowel movement today. Past History Past Medical History: HIV/AIDS, other (osteomyelitis right sternoclavicular joint) Past Surgical History: Other (debridement of osteomyelitis) Social history: full code. denies: smoking, alcohol abuse, prescription drug abuse, IV drug use Family history: denies: CAD, stroke Medications and Allergies Allergies Allergy/AdvReac Type Severity Reaction Status Date / Time amoxicillin trihydrate AdvReac Unknown Verified 02/03/16 17:24 [From Augmentin] potassium clavulanate AdvReac Unknown Verified 02/03/16 17:24 [From Augmentin] Home Medications Medication Instructions Recorded Confirmed Last Taken Type Elvitegr/Cobicist/Emtric/Tenof 1 each PO DAILY 02/20/16 02/27/16 Unknown History [Stribild Tablet] Ciprofloxacin HCl [Ciprofloxacin 500 mg PO Q12H #20 tab 02/24/16 02/27/16 Unknown Rx TAB] Vancomycin Vial 2,000 mg IV Q8H #10 vial 02/24/16 02/27/16 Unknown Rx oxyCODONE /ACETAMINOPHEN [Percocet 1 tab PO Q4H PRN #30 tablet 02/24/16 Unknown Rx 5/325 mg] Active Meds: Active Medications Enoxaparin Sodium (Lovenox) 40 mg SUB-Q QDAY [facility] Metronidazole (Flagyl 500 Mg/100 Ml) 100 mls @ 100 mls/hr IV Q8HR [facility] Last Admin: 02/27/16 06:15 Dose: 100 mls/hr Sodium Chloride (Nacl 0.9% 1000 Ml) 1,000 mls @ 100 mls/hr IV DIRECT [facility] Last Admin: 02/27/16 04:31 Dose: 100 mls/hr Miscellaneous Medication (Elvitegr/Cobicist/Emtric/Tenof [Stribild Tablet]) 1 each PO DAILY [facility] Oxycodone/Acetaminophen (Percocet 5/325) 1 tab PO Q4H PRN PRN Reason: Pain, Moderate (4-6) Review of Systems Constitutional: fever, chills, anorexia, fatigue, weakness, no weight loss, no weight gain, no sweats Ears, nose, mouth and throat: no ear pain, no ear discharge, no tinnitis, no decreased hearing, no mouth pain, no dysphagia Cardiovascular: no chest pain, no orthopnea, no palpitations, no shortness of breath, no dyspnea on exertion Respiratory: no cough, no cough with sputum, no wheezing Gastrointestinal: nausea, diarrhea Genitourinary Male: no dysuria, no hematuria, no flank pain, no genital pain Rectal: no pain, no incontinence, no itching Musculoskeletal: no neck stiffness, no neck pain, no shooting arm pain, no morning stiffness Integumentary: no pruritis, no redness, no acne Neurological: no paralysis, no migraines Psychiatric: no anxiety, no change in sleep habits Physical Examination - Constitutional Vitals: Selected Entries 02/27/16 02/27/16 05:35 07:00 Temperature 100.1 F H 99.5 F Pulse Rate [ 84 Right Brachial] Respiratory 16 Rate O2 Sat by Pulse 97 Oximetry Blood Pressure 144/81 [Right Arm] Blood Pressure 102 Mean [Right Arm ] General appearance: Present: no acute distress, well-nourished - EENT Eyes: Present: PERRL, EOM intact. Absent: scleral icterus, conjunctival injection ENT: hearing intact, clear oral mucosa, no oropharyngeal erythema, no poor dentition - Neck Neck: Present: supple, normal ROM. Absent: enlarged thyroid, masses or JVD - Respiratory Respiratory: bilateral: CTA - Cardiovascular Rhythm: regular Heart Sounds: Present: S1 & S2 - Extremities Extremities: no ischemia, pulses intact, No edema, normal temperature - Abdominal General gastrointestinal: Present: soft, non-tender, normal bowel sounds Male genitourinary: Present: deferred - Rectal Rectal Exam: deferred - Integumentary Integumentary: Present: warm. Absent: clear, jaundice, rash - Musculoskeletal Musculoskeletal: strength equal bilaterally - Psychiatric Psychiatric: appropriate mood/affect - Additional findings Additional findings: sternal area surgical site with sutures, no erythema, no drainage Results - Labs CBC & Chem 7: 02/26/16 23:41 02/26/16 23:41 Labs: Microbiology 02/27/16 04:54 Stool C. difficile DNA Amplification - Final 02/26/16 23:41 Peripheral/Venous Blood Culture - Preliminary Culture in Progress 02/26/16 23:41 Peripheral/Venous Blood Culture - Preliminary Culture in Progress Laboratory Tests 02/26/16 02/26/16 02/26/16 23:41 23:41 23:41 WBC 14.6 H Plt Count 395 INR 1.25 H BUN 9 Creatinine 0.9 Urine Bilirubin Urine WBC (Auto) 02/27/16 03:40 WBC Plt Count INR BUN Creatinine Urine Bilirubin Neg Urine WBC (Auto) 2.0 Assessment and Plan Antibiotics: 1) metronidazole 500mg iv Q8H (02/26 This is a 40 year old man with HIV (CD4 count of 706, viral load 25) presented on 02/27/16 with nausea, diarrhea and fever that started on 02/26/16. He described going to the bathroom every 30 minutes but has settled down significantly since being hospitalized. 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 Admission labs revealed wbc of 14 and maximum temp of 100 1.clinical picture of fever, nausea and diarrhea that began abruptly. Stool for cdiff negative so far. He does have leukocytosis. The concerns include cdiff, picc line associated infection and drug related especially cipro. 2. Right sternoclavicular joint septic arthritis and osteomyelitis, intraopeative culture negative. On empiric treatment with vancomycin and cipro. The surgical site is clean, no purulence. 3. HIV infection, well controlled on stribild -10/2015 CD4 count 706; HIV viral load 25 -patient's will be bringing in his HIV medications, he can take his own medication 4. Leukocytosis, related to # 1 5. RPR +1:64 - 12/2014 -completed treatment 6) Diarrhea, cdiff negative Plan: 1) will resume vancomycin for his Sternoclavicular joint osteomyelitis 2) will not resume cipro, rule out cause of presentation 3) obtain stool for giardia and culture 4) change flagyl to po for now 5) Patient's to bring in his Stribild for him to continue taking 6) follow up blood culture
[2016-02-27] MEDS ORDERED: VANCOMYCIN PHARMACY TO DOSE IV SCH (15:00)
[2016-02-27] MEDS ORDERED: LEVAQUIN PO SCH (15:00)
[2016-02-27] MEDS: PERCOCET 5/325 PO PRN ×2 (15:45→19:57)
[2016-02-27] MEDS: VANCOMYCIN VIAL 2,000 MG in NACL 0.9% 500 ML 500 ML IV SCH (16:09)
[2016-02-27] MEDS: FLAGYL PO SCH (22:00)
[2016-02-28] MEDS: NACL 0.9% 1000 ML 1,000 ML IV SCH (07:40)
--- NOTE | 2016-02-28 07:47 | Progress Note ---
Assessment and Plan Assessment and plan: 1. Diarrhea/sepsis c diff negative, fup stool cx, ID following along At this point working diagnosis is viral or bacterial acute gastroenteritis 2. HIV patient may take his home med of stribild, his to bring it in 3. Sternoclavicular joint osteomylitis continue Vancomycin, ID input appreciated 4. DVT ppx lovenox History Interval history: He states the diarrhea is resolving, he only had 1 soft stool. Hospitalist Physical - Physical exam Narrative exam: General: Patient appears well in no distress HEENT: MMM, EOMI cardiac: S1-S2 heard Sternoclavicular surgical site noted with pritesh, no erythema, no drainage, no tenderness lungs: clear to auscultation, abdomen: soft, nontender, nondistended bowel sounds positive extremities: no edema clubbing or cyanosis Skin: no rash or lesion Neuro: no focal deficit Psych: appropriate behavior and mood, cognition intact - Constitutional Vitals: Temp Pulse Resp BP Pulse Ox 97.8 F 64 18 126/76 97 02/28/16 00:00 02/28/16 00:00 02/28/16 00:00 02/28/16 00:00 02/28/16 00:00 General appearance: Present: no acute distress, well-nourished Results - Labs CBC & Chem 7: 02/26/16 23:41 02/26/16 23:41 Labs: Laboratory Last Values WBC 14.6 K/mm3 (4.5-11.0) H 02/26/16 23:41 RBC 3.79 M/mm3 (3.65-5.03) 02/26/16 23:41 Hgb 11.9 gm/dl (11.8-15.2) 02/26/16 23:41 Hct 34.6 % (35.5-45.6) L 02/26/16 23:41 MCV 91 fl (84-94) 02/26/16 23:41 MCH 31 pg (28-32) 02/26/16 23:41 MCHC 34 % (32-34) 02/26/16 23:41 RDW 13.1 % (13.2-15.2) L 02/26/16 23:41 Plt Count 395 K/mm3 (140-440) 02/26/16 23:41 Lymph % (Auto) 11.4 % (13.4-35.0) L 02/26/16 23:41 Drew % (Auto) 11.2 % (0.0-7.3) H 02/26/16 23:41 Eos % (Auto) 0.0 % (0.0-4.3) 02/26/16 23:41 Baso % (Auto) 0.4 % (0.0-1.8) 02/26/16 23:41 Lymph # 1.7 K/mm3 (1.2-5.4) 02/26/16 23:41 Drew # 1.6 K/mm3 (0.0-0.8) H 02/26/16 23:41 Eos # 0.0 K/mm3 (0.0-0.4) 02/26/16 23:41 Baso # 0.1 K/mm3 (0.0-0.1) 02/26/16 23:41 Seg Neutrophils % 77.0 % (40.0-70.0) H 02/26/16 23:41 Seg Neutrophils # 11.3 K/mm3 (1.8-7.7) H 02/26/16 23:41 PT 15.6 Sec. (12.2-14.9) H 02/26/16 23:41 INR 1.25 (0.87-1.13) H 02/26/16 23:41 VBG pH 7.402 (7.320-7.420) 02/26/16 23:41 Sodium 131 mmol/L (137-145) L 02/26/16 23:41 Potassium 3.6 mmol/L (3.6-5.0) 02/26/16 23:41 Chloride 90.6 mmol/L (98-107) L 02/26/16 23:41 Carbon Dioxide 25 mmol/L (22-30) 02/26/16 23:41 Anion Gap 19 mmol/L 02/26/16 23:41 BUN 9 mg/dL (9-20) 02/26/16 23:41 Creatinine 0.9 mg/dL (0.8-1.5) 02/26/16 23:41 Estimated GFR > 60 ml/min 02/26/16 23:41 BUN/Creatinine Ratio 10.00 % 02/26/16 23:41 Glucose 134 mg/dL (75-100) H 02/26/16 23:41 Lactic Acid 0.8 mmol/L (0.7-2.0) 02/27/16 02:45 Calcium 9.0 mg/dL (8.4-10.2) 02/26/16 23:41 Total Bilirubin 0.5 mg/dL (0.1-1.2) 02/26/16 23:41 AST 33 units/L (5-40) 02/26/16 23:41 ALT 69 units/L (7-56) H 02/26/16 23:41 Alkaline Phosphatase 72 units/L (35-129) 02/26/16 23:41 Total Protein 7.9 g/dL (6.3-8.2) 02/26/16 23:41 Albumin 3.1 g/dL (3.9-5) L 02/26/16 23:41 Albumin/Globulin Ratio 0.6 % 02/26/16 23:41 Urine Color Yellow (Yellow) 02/27/16 03:40 Urine Turbidity Cloudy (Clear) 02/27/16 03:40 Urine pH 5.0 (5.0-7.0) 02/27/16 03:40 Ur Specific [place] 1.011 (1.003-1.030) 02/27/16 03:40 Urine Protein 30 mg/dl mg/dL (Negative) 02/27/16 03:40 Urine Glucose (UA) Neg mg/dL (Negative) 02/27/16 03:40 Urine Ketones 20 mg/dL (Negative) 02/27/16 03:40 Urine Blood Mod (Negative) 02/27/16 03:40 Urine Nitrite Neg (Negative) 02/27/16 03:40 Urine Bilirubin Neg (Negative) 02/27/16 03:40 Urine Urobilinogen < 2.0 mg/dL (<2.0) 02/27/16 03:40 Ur Leukocyte Esterase Neg (Negative) 02/27/16 03:40 Urine WBC (Auto) 2.0 /HPF (0.0-6.0) 02/27/16 03:40 Urine RBC (Auto) 6.0 /HPF (0.0-6.0) 02/27/16 03:40 Urine Mucus Few /HPF 02/27/16 03:40
[2016-02-28] MEDS: FLAGYL PO SCH ×3 (08:00→22:42)
[2016-02-28] MEDS: VANCOMYCIN VIAL 2,000 MG in NACL 0.9% 500 ML 500 ML IV SCH ×3 (09:01→15:45)
[2016-02-28] MEDS: LOVENOX SUB-Q SCH (09:01)
[2016-02-28 09:41] LABS: Anion Gap 16 mmol/L; Blood Urea Nitrogen 7 mg/dL (9-20); Calcium 8.4 mg/dL (8.4-10.2); Carbon Dioxide 26 mmol/L (22-30); Chloride 95.8 mmol/L (98-107); Glucose 130 mg/dL (75-100); Magnesium 1.8 mg/dL (1.7-2.3); Potassium 3.2 mmol/L (3.6-5.0); Sodium 135 mmol/L (137-145)
--- NOTE | 2016-02-28 10:02 | Admit Criteria Form ---
Admission Criteria Documentation: GASTROENTEROLOGY [facility] Clinical Indications for Admission to Inpatient Care (Place 'X' for any and all applicable criteria): Hospital admission is needed for appropriate care of the patient because of ANY ONE of the following: [ ]I. Hemoperitoneum(7) [ ]II. Ascites requiring acute treatment indicated by ANY ONE of the following( 8)(9): [ ]a) Hemodynamic instability remaining after emergency or observation level care (as appropriate) [ ]b) Peritoneal signs present (eg, abdominal rigidity, rebound tenderness, absent bowel sounds) [ ]c) Tachypnea, Hypoxemia, or other respiratory symptoms remain after emergency or observation level care (as appropriate) [ ]d) Suspected infected ascites as indicated by ANY ONE of the following: [ ]i) Temperature greater than 100 degrees F (37.8 degrees C) [ ]ii) Abdominal pain or tenderness not relieved by paracentesis [ ]iii) Systemic signs of infection (eg, elevated WBC count, fever) [ ]iv) Ascitic fluid analysis consistent with infection ( eg, elevated WBC count): [ ]v) Vital sign abnormality [ ]III. Suspected acute intra-abdominal process indicated by ANY ONE of the following(1)(2)(3)(4)(5): [ ]a) Hemodynamic instability [ ]b) Peritoneal signs present (eg, abdominal rigidity, rebound tenderness, absent bowel sounds) [ ]c) Bowel obstruction suspected (eg, severe vomiting, abdominal distension) [ ]d) Suspected mesenteric ischemia or ischemic colitis(6) [ ]e) Other signs or symptoms of acute abdominal disease (eg, severe pain, free air): [ ]IV. Severe liver disease indicated by ANY ONE of the following(8)(9)(10)(11)( 12)(13)(14): [ ]a) Acute hepatitis (eg, transaminase level greater than 1000 IU/L) [ ]b) Acute elevation of prothrombin time to more than 50% above normal or INR greater than 1.5 [ ]c) Bilirubin greater than 20 mg/dL (342 micromoles/L) (15) [ ]d) New-onset or worsening hepatic encephalopathy [ ]e) Acute liver necrosis [ ]f) Vomiting or dehydration that is severe of persistent [ ]g) Hemodynamic instability due to liver disease [ ]h) Acute renal failure [ ]i) Hepatic abscess [ ]j) Dehydration that is severe or persistent [ ]k) Hepatic hydrothorax(21) [ ]l) Other indications of severe liver disease (eg, persistent fever , ingestion of hepatotoxin) [ X]V. Severe diarrhea indicated by ANY ONE of the following(17)(18)(19)(20)(21) (22)(23): [X ]a) High fever or other high-risk infection situation [ ]b) Intractable bloody diarrhea (eg, more than 6 bloody stools per day) [ X]c) Suspected Clostridium difficile-associated diarrhea(24) [ ]d) Change in mental status that persists after emergency or observation level care (as appropriate) [ ]e) Severe dehydration (eg, greater than 9% loss of body weight in children) [ ]f) Inability to maintain hydration [ ]g) Peritoneal signs present (eg, abdominal rigidity, rebound tenderness, absent bowel sounds) [ ]h) Abdominal ischemia suspected(6) [ ]i) Hemodynamic instability that persists after emergency or observation level care (as appropriate) [ ]j) Severe electrolyte abnormalities requiring inpatient care [ ]k) Acute renal failure [ ]. Suspected toxic megacolon(5)(6) [ ]VII.Severe dysphagia indicated by ANY ONE of the following(25)(26): [ ]a) Suspected esophageal perforation or fistula(27) [ ]b) Suspected cause that requires inpatient care (eg, caustic ingestion, severe esophagitis) (28) [ ]c) Severe dehydration (eg, greater than 9% loss of body weight in children) [ ]d) Inability to manage secretions or maintain hydration [ ]e) Hemodynamic instability that persists after emergency or observation level care (as appropriate) [ ]f) Severe electrolyte abnormalities requiring inpatient care [ ]g) Acute renal failure [ ]VIII.Vomiting and ANY ONE of the following (29)(30)(31)(32): [ ]a) High fever or other high-risk infection situation [ ]b) Change in mental status that persists after emergency or observation level care (as appropriate) [ ]c) Severe dehydration (e.g., greater than 9% loss of body weight in children) [ ]d) Peritoneal signs present (e.g., abdominal rigidity, rebound tenderness, absent bowel sounds) [ ]e) Hemodynamic instability that persists after emergency or observation level care (as appropriate) [ ]f) Severe electrolyte abnormalities requiring inpatient care [ ]g) Acute renal failure [ ]h) Bowel obstruction suspected (e.g., severe vomiting, abdominal distension) [ ]i) Vomiting that is severe or persistent after medical treatment [ ]IX. Significant dehydration indicated by ANY ONE of the following(23)(24)(25) [ ]a) Clinical findings of severe dehydration indicated by ANY ONE of the following: [ ]i) Acute loss of weight from baseline (5% of body weight in adults, 9% in pediatric patients) [ ]ii) Hemodynamic instability [ ]iii) Acute renal failure [ ]iv) Serum sodium greater than 150 mEq/L (mmol/L) [ ]b) Dehydration that is persistent indicated by ALL of the following: [ ]i) Oral rehydration therapy not tolerated or insufficient to adequately correct dehydration [ ]ii) Appropriate intravenous treatment (eg, fluids) does not readily correct dehydration hours of (ie, after 12 to 24 of treatment) [ ]X. Gastroparesis and ANY ONE of the following(37)(38)(39): [ ]a) Dehydration that is severe or persistent [ ]b) Severe electrolyte abnormalities requiring inpatient care [ ]c) Acute renal failure [ ]d) Vomiting that is severe or persistent [ ]XI. Complications of transplanted liver indicated by ANY ONE of the following (40)(41): [ ]a) Acute graft rejection requiring inpatient management (eg, intravenous immunosuppression)(42) [ ]b) Failure of transplanted liver as indicated by ANY ONE of the following: [ ]i) Acute hepatitis (eg, transaminase level greater than 1000 International Units per liter (IU/L)) [ ]ii) Acute elevation of prothrombin time to more than 50% above baseline or INR greater than 1.5 [ ]iii) Bilirubin greater than 20 mg/dL (342 micromoles/L) [ ]iv) New-onset or worsening hepatic encephalopathy [ ]v) Acute elevation of serum ammonia level (eg, greater than 210 mcg/dL (150 micromoles/L)) [ ]vi) Acute liver necrosis [ ]c) Infection requiring inpatient management (eg, Hemodynamic instability, need for intravenous antimicrobial treatment)(43)(44)(45)(46)(47)(48)(49)(50) [ ]d) Other complication of transplanted liver (eg, thrombosis, autoimmune hepatitis, variceal bleeding) requiring inpatient management(51)(52) [ ]XII Complications of transplanted pancreas indicated by ANY ONE of the following(53): [ ]a) Acute graft rejection requiring inpatient management (eg, intravenous immunosuppression)(42)(54) [ ]b) Failure of transplanted pancreas as indicated by ANY ONE of the following: [ ]i) Serum amylase greater than 3 times the upper limit of normal or baseline [ ]ii) Serum lipase greater than 3 times the upper limit of normal or baseline [ ]iii) Imaging findings consistent with pancreatic inflammation or necrosis [ ]c) Infection requiring inpatient management (eg, Hemodynamic instability, need for intravenous antimicrobial treatment)(43)(44)(45)(46)(47)(48)(49)(50) [ ]d) Other complication of transplanted liver (eg, thrombosis, autoimmune hepatitis, variceal bleeding) requiring inpatient management(51)(52) [ ]X. Gastroenterology condition and ALL of the following: [ ]a) Symptom or finding for which emergency and observation care have failed or are not considered appropriate (Also use General Criteria: Observation Care as appropriate) [ ]b) Presence of ANY ONE of the following: [ ]i) A General Admission Criteria [ ]ii) A Pediatric General Admission Criteria. The original [facility] [employer] content created by [employer] has been revised. The portions of the content which have been revised are identified through the use of italic text or in bold,and [facility] has neither reviewed nor approved the modified material. All other unmodified content is copyright [facility] [employer] [facility]. Please see references footnoted in the original [facility] edition 2016 Admission Criteria Met: Yes
[2016-02-28] MEDS: PERCOCET 5/325 PO PRN ×2 (11:16→22:43)
--- NOTE | 2016-02-28 11:40 | Progress Note ---
Assessment and Plan Antibiotics: 1) metronidazole 500mg iv Q8H (02/26 This is a 40 year old man with HIV (CD4 count of 706, viral load 25) presented on 02/27/16 with nausea, diarrhea and fever that started on 02/26/16. He described going to the bathroom every 30 minutes but has settled down significantly since being hospitalized. 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 Admission labs revealed wbc of 14 and maximum temp of 100 1.clinical picture of fever, nausea and diarrhea that began abruptly. Stool for cdiff negative so far. He does have leukocytosis. The concerns include cdiff, picc line associated infection and drug related especially cipro. --patient has not had fevers since he has been in the hospital. He has been off the cipro. I believe the cipro was the cause of his presentation 2. Right sternoclavicular joint septic arthritis and osteomyelitis, intraopeative culture negative. On empiric treatment with vancomycin and cipro. The surgical site is clean, no purulence. 3. HIV infection, well controlled on stribild -10/2015 CD4 count 706; HIV viral load 25 -patient's will be bringing in his HIV medications, he can take his own medication 4. Leukocytosis, related to # 1 5. RPR +1:64 - 12/2014 -completed treatment 6) Diarrhea, cdiff negative --resolving, had one loose stool this morning. I believe it was related to cipro Plan: 1) will resume vancomycin for his Sternoclavicular joint osteomyelitis 2) will not resume cipro, believe to be the cause of presentation 3) obtain stool for giardia and culture, doubt 4) will give one more day of flagyl then discontinue 5) Patient taking his own Stribild for HIV 6) follow up blood culture,no growth so far Subjective Date of service: 02/28/16 Principal diagnosis: diarrhea Interval history: Patient is doing much better, he does not have watery diarrhea. His bowel movement is loose Objective - Constitutional Vitals: Selected Entries 02/28/16 08:00 Temperature 98 F Pulse Rate [ 80 Right Brachial] Respiratory 18 Rate O2 Sat by Pulse 98 Oximetry Blood Pressure 142/87 [Right Arm] Blood Pressure 105 Mean [Right Arm ] General appearance: Present: no acute distress, well-nourished - EENT Eyes: PERRL, EOM intact, no scleral icterus, no conjunctival injection ENT: hearing intact, clear oral mucosa, no oropharyngeal erythema - Neck Neck: supple, normal ROM, no enlarged thyroid, no masses or JVD - Respiratory Respiratory effort: normal Respiratory: bilateral: CTA - Breasts Breasts: deferred - Cardiovascular Rhythm: regular Heart Sounds: Present: S1 & S2 Extremities: no ischemia, No edema - Gastrointestinal General gastrointestinal: Present: soft, non-tender, normal bowel sounds Rectal Exam: deferred - Genitourinary Male genitourinary: deferred - Integumentary Integumentary: clear, warm, dry, no jaundice, no rash - Musculoskeletal Musculoskeletal: strength equal bilaterally - Psychiatric Psychiatric: cooperative, depressed - Labs CBC & Chem 7: 02/26/16 23:41 02/28/16 09:15 Labs: Microbiology 02/27/16 04:54 Stool C. difficile DNA Amplification - Final 02/27/16 03:40 Urine,Clean Catch Urine Culture - Preliminary 02/26/16 23:41 Peripheral/Venous Blood Culture - Preliminary NO GROWTH AFTER 24 HOURS 02/26/16 23:41 Peripheral/Venous Blood Culture - Preliminary NO GROWTH AFTER 24 HOURS Laboratory Tests 02/26/16 02/26/16 02/28/16 23:41 23:41 09:15 WBC 14.6 H Plt Count 395 INR 1.25 H Potassium 3.2 L Glucose 130 H
[2016-02-28 17:46] LABS: Basophils % (Auto) 0.4 % (0.0-1.8); Eosinophils % (Auto) 1.5 % (0.0-4.3); Hematocrit 36.5 % (35.5-45.6); Hemoglobin 12.1 gm/dl (11.8-15.2); Mean Corpuscular HGB Conc 33 % (32-34); Mean Corpuscular Hemoglobin 30 pg (28-32); Mean Corpuscular Volume 92 fl (84-94); Platelet Count 488 K/mm3 (140-440); Red Blood Count 3.98 M/mm3 (3.65-5.03); Red Cell Distribution Width 13.1 % (13.2-15.2); White Blood Count 15.4 K/mm3 (4.5-11.0)
[2016-02-29] MEDS: PERCOCET 5/325 PO PRN (02:30)
[2016-02-29 08:06] VITALS: BP 142/81
[2016-02-29] MEDS: NACL 0.9% 1000 ML 1,000 ML IV SCH (08:15)
[2016-02-29] MEDS: LOVENOX SUB-Q SCH (09:07)
--- NOTE | 2016-02-29 09:34 | Progress Note ---
Assessment and Plan Antibiotics: 1) metronidazole 500mg iv Q8H (02/26 This is a 40 year old man with HIV (CD4 count of 706, viral load 25) presented on 02/27/16 with nausea, diarrhea and fever that started on 02/26/16. He described going to the bathroom every 30 minutes but has settled down significantly since being hospitalized. 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 Admission labs revealed wbc of 14 and maximum temp of 100 1.clinical picture of fever, nausea and diarrhea that began abruptly. Stool for cdiff negative so far. He does have leukocytosis. The concerns include cdiff, picc line associated infection and drug related especially cipro. --patient has not had fevers since he has been in the hospital. He has been off the cipro. I believe the cipro was the cause of his presentation --blood cultures remain negative 2. Right sternoclavicular joint septic arthritis and osteomyelitis, intraopeative culture negative. On empiric treatment with vancomycin and cipro. The surgical site is clean, no purulence. -will continue vancomycin to be followed at the ID office, patient was previously getting medications there and should resume 3. HIV infection, well controlled on stribild -10/2015 CD4 count 706; HIV viral load 25 -patient is taking his own medication, stribild 4. Leukocytosis, related to # 1 5. RPR +1:64 - 12/2014 -completed treatment 6) Diarrhea, cdiff negative --resolved, I believe it was related to cipro Plan: 1) vancomycin for his Sternoclavicular joint osteomyelitis 2) will not resume cipro, believe to be the cause of presentation 3) obtain stool for giardia and culture, doubt 4) disconitnue flagyl 5) Patient taking his own Stribild for HIV 6) no objection to discharge, patient follows up with the ID clinic at the infusion center, he is already plugged in 7) Patient to follow up with Dr. Garcia to have the surgical pritesh removed Subjective Date of service: 02/29/16 Principal diagnosis: diarrhea Interval history: Patient is doing much better, diarrhea has resolved, no nausea or vomiting and no fever. Objective - Constitutional Vitals: Selected Entries 02/28/16 02/29/16 15:29 08:00 Temperature 99 F 97.5 F L Pulse Rate [ 67 Right Brachial] Respiratory 16 Rate Blood Pressure 142/81 [Right Arm] Blood Pressure 101 Mean [Right Arm ] General appearance: Present: no acute distress, well-nourished - EENT Eyes: PERRL, EOM intact, no scleral icterus, no conjunctival injection ENT: hearing intact, clear oral mucosa Ears: bilateral: normal - Neck Neck: supple, normal ROM - Respiratory Respiratory effort: normal Respiratory: bilateral: CTA - Breasts Breasts: deferred - Cardiovascular Rhythm: regular Heart Sounds: Present: S1 & S2 Extremities: no ischemia, No edema - Gastrointestinal General gastrointestinal: Present: soft, non-tender, normal bowel sounds Rectal Exam: deferred - Genitourinary Male genitourinary: deferred - Integumentary Integumentary: clear, warm, dry - Musculoskeletal Musculoskeletal: strength equal bilaterally - Neurologic Neurologic: moves all extremities - Psychiatric Psychiatric: appropriate mood/affect, cooperative - Labs CBC & Chem 7: 02/28/16 17:07 02/28/16 09:15 Labs: Microbiology 02/27/16 04:54 Stool C. difficile DNA Amplification - Final 02/28/16 11:05 Stool Stool Culture - Preliminary 02/26/16 23:41 Peripheral/Venous Blood Culture - Preliminary NO GROWTH AFTER 48 HOURS 02/26/16 23:41 Peripheral/Venous Blood Culture - Preliminary NO GROWTH AFTER 48 HOURS Laboratory Tests 02/26/16 02/28/16 02/28/16 23:41 09:15 17:07 WBC 15.4 H Plt Count 488 H INR 1.25 H Creatinine 0.7 L Estimated GFR > 60
[2016-02-29] MEDS: VANCOMYCIN VIAL 2,000 MG in NACL 0.9% 500 ML 500 ML IV SCH (10:42)
--- NOTE | 2016-02-29 11:26 | Discharge Summary ---
Providers - Providers Date of Admission: 02/27/16 04:04 Attending physician: AD NUNEZ MD 02/27/16 04:23 Consult to Physician [CONS] Routine Consulting Provider: VICK PEREZ Reason For Exam: diarrhea Place consult to:: Fermin Notified:: yes If yes, spoke with:: answering service Time called:: 09:10 Primary care physician: VICK PEREZ Hospitalization Condition: Stable Hospital course: 1. Diarrhea/sepsis c diff negative, fup stool cx, ID following along At this point working diagnosis is viral or bacterial acute gastroenteritis 2. HIV patient may take his home med of stribild, his to bring it in 3. Sternoclavicular joint osteomylitis continue Vancomycin, ID input appreciated 4. DVT ppx lovenox Disposition: DC/TX HOME UNDER HOME HEALTH Time spent for discharge: 35 minutes Core Measure Documentation - Palliative Care Palliative Care/ Comfort Measures: Not Applicable - Core Measures Any of the following diagnoses?: none Exam - Physical Exam Narrative exam: General: Patient appears well in no distress HEENT: MMM, EOMI cardiac: S1-S2 heard Sternoclavicular surgical site noted with pritesh, no erythema, no drainage, no tenderness lungs: clear to auscultation, abdomen: soft, nontender, nondistended bowel sounds positive extremities: no edema clubbing or cyanosis Skin: no rash or lesion Neuro: no focal deficit Psych: appropriate behavior and mood, cognition intact - Constitutional Vitals: Temp Pulse Resp BP Pulse Ox 97.5 F L 67 16 142/81 97 02/29/16 08:00 02/29/16 08:00 02/29/16 09:10 02/29/16 08:00 02/29/16 08:00 Plan Follow up with: VICK PEREZ MD [Primary Care Provider] - 3-5 Days Prescriptions: oxyCODONE /ACETAMINOPHEN [Percocet 5/325 mg] 1 tab PO Q4H PRN #30 tablet PRN Reason: Pain, Moderate (4-6)
[2016-02-29] MEDS: FLAGYL PO SCH (13:17)
== END 2016-02-29 14:00 | disposition home health service (06) | DRG 975 ==
LOC: ED 23:10 → 2B-SURG 02-27 04:04
PROVIDERS: ADMIT Internal Medicine; ATTEND Internal Medicine
PROC: 0JHF3XZ Insertion of Tunneled Vascular Access Device into Left Upper Arm Subcutaneous Tissue and Fascia, Percutaneous Approach (ICD-10-PCS; 2016-02-24)
PROC: 4A033R1 Measurement of Arterial Saturation, Peripheral, Percutaneous Approach (ICD-10-PCS; principal; 2016-02-26)
DX: B20 Human immunodeficiency virus [HIV] disease (principal); A41.89 Other specified sepsis; M86.9 Osteomyelitis, unspecified; M00.9 Pyogenic arthritis, unspecified; A09 Infectious gastroenteritis and colitis, unspecified; M19.011 Primary osteoarthritis, right shoulder; A08.4 Viral intestinal infection, unspecified; Z79.899 Other long term (current) drug therapy; Z88.1 Allergy status to other antibiotic agents; Z98.890 Other specified postprocedural states; Z87.891 Personal history of nicotine dependence
CPT/HCPCS: 36415; 71010; 80048; 80053; 80202; 81001; 82140; 82805; 83735; 85025; 85610; 87040; 87045; 87086; 87493; 96360; 96361; J1650; J3370; J7030; J7040

== ENCOUNTER 2017-02-07 09:50 | Emergency (ER) | payer SELFPAY ==
[2017-02-07 09:56] VITALS: BP 116/68
[2017-02-07 10:26] LABS: Basophils % (Auto) 0.5 % (0.0-1.8); Eosinophils % (Auto) 1.9 % (0.0-4.3); Hematocrit 39.1 % (35.5-45.6); Hemoglobin 13.4 gm/dl (11.8-15.2); Mean Corpuscular HGB Conc 34 % (32-34); Mean Corpuscular Hemoglobin 32 pg (28-32); Mean Corpuscular Volume 92 fl (84-94); Platelet Count 312 K/mm3 (140-440); Red Blood Count 4.25 M/mm3 (3.65-5.03)
[2017-02-07 10:37] LABS: Alanine Aminotransferase 17 units/L (7-56); Albumin 3.8 g/dL (3.9-5); Albumin/Globulin Ratio 0.8 %; Alkaline Phosphatase 62 units/L (35-129); BUN/Creatinine Ratio 10; Blood Urea Nitrogen 10 mg/dL (9-20); Calcium 9.2 mg/dL (8.4-10.2); Carbon Dioxide 29 mmol/L (22-30); Glucose 93 mg/dL (75-100); Total Protein 8.4 g/dL (6.3-8.2)
[2017-02-07 10:38] LABS: Anion Gap 15 mmol/L; Sodium 142 mmol/L (137-145)
== END 2017-02-07 16:52 | disposition left against medical advice (07) ==
LOC: ED 09:50
DX: R53.83 Other fatigue (principal); Z53.21 Procedure and treatment not carried out due to patient leaving prior to being seen by health care provider
CPT/HCPCS: 36415; 80053; 85025